=== PATIENT | female | born 2000 | race Two or more races ===

== ENCOUNTER 2020-10-15 17:39 | Inpatient (IN) ==
--- NOTE | 2020-10-15 17:56 | Emergency Department Note ---
Impression & Plan Suicidal ideation, Mood disorder ED Provider Note NAME: HEIDI MCGRAW AGE: 20 SEX: F : 2000 ARRIVES VIA: [employer] INFORMANT: Patient ED PROVIDER(S): Jonathan Barajas DO CHIEF COMPLAINT: Suicidal ideations HPI: Patient is a 20-year-old female who presents ER for suicidal ideations with active plan to suffocate herself. She notes she has had suicidal ideations for several years now. She admits that the cons are now outweighing the pros. She was talking to some of her friends in [facility]. She was telling them that she wants to and what ever happens will happen. Denies any auditory or visual hallucinations. admits to intermittent headaches which is unchanged for her as well as some intermittent chest pain which is nonexertional. Has no pain now. Patient denies diabetes, hypertension, hyperlipidemia, CAD, and history of sudden at a young age. Patient denies any recent trips, travel, coughing up blood, history of blood clots, history of clotting disorders, history of cancer. ROS: See above HPI for pertinent positives & negatives. A total of 10 systems reviewed and were otherwise negative. PAST MEDICAL HISTORY:See Below PAST SURGICAL HISTORY:See Below FAMILY HISTORY:See Below SOCIAL HISTORY:See Below HOME MEDICATIONS:See Below ALLERGIES:See Below VITALS:See Below PHYSICAL EXAMINATION: GENERAL: Sitting up in bed, alert, well appearing, well nourished, no distress, non-toxic EYE EXAM: normal conjunctiva. OROPHARYNX: no exudate, no erythema, lips, buccal mucosa, and tongue normal and mucous membranes are moist NECK: supple, no nuchal rigidity, no adenopathy, non-tender LUNGS: Clear to auscultation. Normal chest wall mechanics HEART: no murmurs, S1 normal and S2 normal ABDOMEN: abdomen soft, non-tender, normo-active bowel sounds, no masses, no rebound or guarding. UPPER EXTREMITIES: upper extremities are grossly normal. LOWER EXTREMITIES: No pitting edema. Calves are equal bilateral NEURO EXAM: Normal sensorium, cranial nerves II-XII grossly intact, normal speech, no gross weakness of arms, no gross weakness of legs. PSYCH: Admits to suicidal ideations with a plan MEDICAL DECISION MAKING: Patient is a 20-year-old female who presents the ER brought in by police with an active plan to kill herself by suffocation. She has no other complaints at this time with exception of some intermittent headaches and intermittent chest pain which is nonexertional. Labs show no significant leukocytosis or anemia. BMP with mild hypokalemia 3.4. Troponin was negative. LFTs bilirubin was unremarkable. TSH was normal. Tox was negative. Alcohol was negative. Covid was negative. Chest x-ray was unremarkable. She has no cardiac history. EKG and chest x-ray unremarkable. No chest pain today. She was updated and evaluated by 3 S. admitted on a 201. Observation Status: Indication: Mood disorder Patient with no pertinent family history, was seen first at 1750 hrs and was necessary in order to determine medical stability and avoid unnecessary admission. Upon reevaluation, 3.5 hours of observation revealed that the patient should be admitted to a psychiatric unit. Disposition date and time 2119 on 10/15/2020. Triage Nursing notes reviewed. Limited review of prior medical records performed Vital Signs: reviewed and remarkable for no significant abnormalities Differential diagnosis: Mood disorder, infection, hypoglycemia, electrolyte abnormalities, cardiac sources, intracerebral event, toxicologic, trauma, neurologic, as well as other pathologies. ER treatment provided: See below Diagnostics interpreted by me: ECG: Sinus rhythm rate of 65 Normal axis No PVCs QTC 420 T wave inversion in the septal leads Laboratory studies: As stated above and show below. Imaging studies: Portable AP upright 1 view the chest shows no focal infiltrate or pneumothorax Consultation(s): none Procedures: none Critical Care: None Past Med/Surg History Social History Smoking Status: Never smoker Feels Safe at Home: Yes Allergies Allergies Allergy/AdvReac Type Severity Reaction Status Date / Time No Known Allergies Allergy Unverified 10/15/20 18:02 Home Meds Home Medications Medication Instructions Recorded Confirmed No Known Home Medications 10/15/20 10/15/20 Results & Data (ED) Vital Signs Vital Signs - 24 hr 10/15/20 17:51 10/15/20 20:14 Pulse Rate 69 Pulse Rate [Finger] 63 Pulse Rhythm [Finger] Regular Respiratory Rate 18 16 Respiratory Effort / Characteristics Non-Labored Spontaneous Non-Labored Spontaneous Respiratory Depth Normal Normal Respiratory Pattern Regular Blood Pressure 122/82 Blood Pressure [Left Arm] 118/79 Blood Pressure Mean 95 Blood Pressure Mean [Left Arm] 92 Blood Pressure Position Sitting Blood Pressure Position [Left Arm] Sitting Pulse Oximetry 96 99 Oxygen Delivery Method Room Air Room Air Sepsis Recent Fever Within 48 Hours No Sepsis New/Unexplained Change in Mental Status N/A Sepsis Action Taken by Nursing No Action Required Laboratory Data Result diagrams: 10/15/20 17:59 10/15/20 17:59 Lab Results 10/15/20 10/15/20 10/15/20 Range/Units 17:57 17:57 17:57 WBC (4.8-10.8) K/uL RBC (4.2-5.4) M/uL Hgb (12.0-16.0) g/dL Hct (37-47) % MCV (80-100) fL MCH (25-34) pg MCHC (32-36) g/dL RDW Std Deviation (36.4-46.3) fL RDW Coeff of Rosalina (11.5-14.5) % Plt Count (130-400) K/uL MPV (7.4-10.4) fL Immature Gran % (Auto) % Neut % (Auto) % Lymph % (Auto) % Sanders % (Auto) % Eos % (Auto) % Baso % (Auto) % Neut # (Auto) (1.4-6.5) K/uL Lymph # (Auto) (1.2-3.4) K/uL Sanders # (Auto) (0.11-0.59) K/uL Eos # (Auto) (0-0.5) K/uL Baso # (Auto) (0-0.2) K/uL Immature Gran # (Auto) (0.00-0.02) K/uL Sodium (136-145) mmol/L Potassium (3.5-5.1) mmol/L Chloride (98-107) mmol/L Carbon Dioxide (21-32) mmol/L Anion Gap (3-11) BUN (7-18) mg/dl Creatinine (0.6-1.2) mg/dl Est Cr Clr Drug Dosing ml/min Est GFR ( Amer) Est GFR (Non-Af Amer) BUN/Creatinine Ratio (10-20) Glucose (70-99) mg/dl Calcium (8.5-10.1) mg/dl Total Bilirubin (0.2-1) mg/dl AST (15-37) U/L ALT (12-78) U/L Alkaline Phosphatase (45-117) U/L Troponin I (0-0.045) ng/ml Total Protein (6.4-8.2) gm/dl Albumin (3.4-5.0) gm/dl Globulin (2.5-4.0) gm/dl Albumin/Globulin Ratio (0.9-2) TSH (0.300-4.500) uIu/ml Urine Color Yellow Urine Appearance Clear (Clear) Urine pH 6.0 (4.5-7.5) Ur Specific [place] 1.024 (1.000-1.030) Urine Protein Negative (Negative) Urine Glucose (UA) Negative (Negative) Urine Ketones 1+ H (Negative) Urine Blood Negative (Negative) Urine Nitrite Negative (Negative) Urine Bilirubin Negative (Negative) Urine Urobilinogen Negative (Negative) Ur Leukocyte Esterase Negative (Negative) POC Ur Test NEG (NEG) Salicylates (2.8-20) mg/dl Urine Opiates Screen Neg (Neg) Ur Methadone, Qual Neg (Neg) Acetaminophen (10-30) ug/ml Urine Barbiturates Neg (Neg) Ur Phencyclidine (PCP) Neg (Neg) U Amphetamin/Meth Scrn Neg (Neg) MDMA (Ecstasy) Screen Neg (Neg) U Benzodiazepines Scrn Neg (Neg) Ur Cocaine Metabolite Neg (Neg) U Marijuana (THC) Screen Neg (Neg) Ethyl Alcohol mg/dL (0-3) mg/dl COVID-19 Eval Order SARS-CoV-2 (PCR) (Negative) Influenza Type A (PCR) (Neg) Influenza Type B (PCR) (Neg) RSV (RT-PCR) (Neg) 10/15/20 10/15/20 10/15/20 Range/Units 17:59 17:59 17:59 WBC 5.80 (4.8-10.8) K/uL RBC 4.91 (4.2-5.4) M/uL Hgb 15.4 (12.0-16.0) g/dL Hct 43.4 (37-47) % MCV 88.4 (80-100) fL MCH 31.4 (25-34) pg MCHC 35.5 (32-36) g/dL RDW Std Deviation 39.8 (36.4-46.3) fL RDW Coeff of Rosalina 12.4 (11.5-14.5) % Plt Count 383 (130-400) K/uL MPV 8.9 (7.4-10.4) fL Immature Gran % (Auto) 0.2 % Neut % (Auto) 54.7 % Lymph % (Auto) 35.9 % Sanders % (Auto) 6.7 % Eos % (Auto) 2.2 % Baso % (Auto) 0.3 % Neut # (Auto) 3.17 (1.4-6.5) K/uL Lymph # (Auto) 2.08 (1.2-3.4) K/uL Sanders # (Auto) 0.39 (0.11-0.59) K/uL Eos # (Auto) 0.13 (0-0.5) K/uL Baso # (Auto) 0.02 (0-0.2) K/uL Immature Gran # (Auto) 0.01 (0.00-0.02) K/uL Sodium 139 (136-145) mmol/L Potassium 3.4 L (3.5-5.1) mmol/L Chloride 106 (98-107) mmol/L Carbon Dioxide 25 (21-32) mmol/L Anion Gap 8.0 (3-11) BUN 8 (7-18) mg/dl Creatinine 0.66 (0.6-1.2) mg/dl Est Cr Clr Drug Dosing 112.5 ml/min Est GFR ( Amer) 147.4 Est GFR (Non-Af Amer) 127.2 BUN/Creatinine Ratio 11.4 (10-20) Glucose 80 (70-99) mg/dl Calcium 9.4 (8.5-10.1) mg/dl Total Bilirubin 0.7 (0.2-1) mg/dl AST 20 (15-37) U/L ALT 28 (12-78) U/L Alkaline Phosphatase 67 (45-117) U/L Troponin I < 0.015 (0-0.045) ng/ml Total Protein 10.0 H (6.4-8.2) gm/dl Albumin 4.9 (3.4-5.0) gm/dl Globulin 5.1 H (2.5-4.0) gm/dl Albumin/Globulin Ratio 1.0 (0.9-2) TSH 1.570 (0.300-4.500) uIu/ml Urine Color Urine Appearance (Clear) Urine pH (4.5-7.5) Ur Specific [place] (1.000-1.030) Urine Protein (Negative) Urine Glucose (UA) (Negative) Urine Ketones (Negative) Urine Blood (Negative) Urine Nitrite (Negative) Urine Bilirubin (Negative) Urine Urobilinogen (Negative) Ur Leukocyte Esterase (Negative) POC Ur Test (NEG) Salicylates < 1.7 L (2.8-20) mg/dl Urine Opiates Screen (Neg) Ur Methadone, Qual (Neg) Acetaminophen < 2 L (10-30) ug/ml Urine Barbiturates (Neg) Ur Phencyclidine (PCP) (Neg) U Amphetamin/Meth Scrn (Neg) MDMA (Ecstasy) Screen (Neg) U Benzodiazepines Scrn (Neg) Ur Cocaine Metabolite (Neg) U Marijuana (THC) Screen (Neg) Ethyl Alcohol mg/dL (0-3) mg/dl COVID-19 Eval Order SARS-CoV-2 (PCR) (Negative) Influenza Type A (PCR) (Neg) Influenza Type B (PCR) (Neg) RSV (RT-PCR) (Neg) 10/15/20 10/15/20 10/15/20 Range/Units 17:59 18:13 18:13 WBC (4.8-10.8) K/uL RBC (4.2-5.4) M/uL Hgb (12.0-16.0) g/dL Hct (37-47) % MCV (80-100) fL MCH (25-34) pg MCHC (32-36) g/dL RDW Std Deviation (36.4-46.3) fL RDW Coeff of Rosalina (11.5-14.5) % Plt Count (130-400) K/uL MPV (7.4-10.4) fL Immature Gran % (Auto) % Neut % (Auto) % Lymph % (Auto) % Sanders % (Auto) % Eos % (Auto) % Baso % (Auto) % Neut # (Auto) (1.4-6.5) K/uL Lymph # (Auto) (1.2-3.4) K/uL Sanders # (Auto) (0.11-0.59) K/uL Eos # (Auto) (0-0.5) K/uL Baso # (Auto) (0-0.2) K/uL Immature Gran # (Auto) (0.00-0.02) K/uL Sodium (136-145) mmol/L Potassium (3.5-5.1) mmol/L Chloride (98-107) mmol/L Carbon Dioxide (21-32) mmol/L Anion Gap (3-11) BUN (7-18) mg/dl Creatinine (0.6-1.2) mg/dl Est Cr Clr Drug Dosing ml/min Est GFR ( Amer) Est GFR (Non-Af Amer) BUN/Creatinine Ratio (10-20) Glucose (70-99) mg/dl Calcium (8.5-10.1) mg/dl Total Bilirubin (0.2-1) mg/dl AST (15-37) U/L ALT (12-78) U/L Alkaline Phosphatase (45-117) U/L Troponin I (0-0.045) ng/ml Total Protein (6.4-8.2) gm/dl Albumin (3.4-5.0) gm/dl Globulin (2.5-4.0) gm/dl Albumin/Globulin Ratio (0.9-2) TSH (0.300-4.500) uIu/ml Urine Color Urine Appearance (Clear) Urine pH (4.5-7.5) Ur Specific [place] (1.000-1.030) Urine Protein (Negative) Urine Glucose (UA) (Negative) Urine Ketones (Negative) Urine Blood (Negative) Urine Nitrite (Negative) Urine Bilirubin (Negative) Urine Urobilinogen (Negative) Ur Leukocyte Esterase (Negative) POC Ur Test (NEG) Salicylates (2.8-20) mg/dl Urine Opiates Screen (Neg) Ur Methadone, Qual (Neg) Acetaminophen (10-30) ug/ml Urine Barbiturates (Neg) Ur Phencyclidine (PCP) (Neg) U Amphetamin/Meth Scrn (Neg) MDMA (Ecstasy) Screen (Neg) U Benzodiazepines Scrn (Neg) Ur Cocaine Metabolite (Neg) U Marijuana (THC) Screen (Neg) Ethyl Alcohol mg/dL < 3.0 (0-3) mg/dl COVID-19 Eval Order CovFluRsv at [facility] SARS-CoV-2 (PCR) NEGATIVE (Negative) Influenza Type A (PCR) Negative (Neg) Influenza Type B (PCR) Negative (Neg) RSV (RT-PCR) Negative (Neg) Imaging Data Radiologist's Impression: Chest X-Ray 10/15/20 17:51 XR chest 1V portable HISTORY: 20 years-old Female cp acute atypical chest pain COMPARISON: None TECHNIQUE: Semierect AP view of the chest FINDINGS: Cardiomediastinal and hilar silhouettes are within normal limits. There is no pneumothorax, pleural effusion, airspace consolidation or overt pulmonary edema. Bones of the chest appear normal. Imaged upper abdomen is unremarkable. IMPRESSION: No acute process. ACT 112: Negative or not required by law. The above report was generated using voice recognition software. It may contain grammatical, syntax or spelling errors. Electronically signed by: Christoph Jospeh M.D. 10/15/2020 6:18 PM Discharge Plan Visit Data Chief Complaint: Mental Health Evaluation Stated Complaint: [facility] ED Provider: Jonathan Barajas Discharge Problem: Suicidal ideation, Mood disorder Forms Stand Alone Forms: [facility], Suicide Prevention Resources Prescriptions Prescriptions: No Action No Known Home Medications RF: 0
[2020-10-15 18:19] LABS: Basophils # (auto) 0.02 K/uL (0-0.2); Basophils % (auto) 0.3 %; Eosinophils # (auto) 0.13 K/uL (0-0.5); Eosinophils % (auto) 2.2 %; Hematocrit (blood only) 43.4 % (37-47); Hemoglobin 15.4 g/dL (12.0-16.0); Immature Granulocytes # (auto) 0.01 K/uL (0.00-0.02); Immature Granulocytes % (auto) 0.2 %; Lymphocytes # (auto) 2.08 K/uL (1.2-3.4); Lymphocytes % (auto) 35.9 %; Mean Corpuscular Hemoglobin 31.4 pg (25-34); Mean Corpuscular Hgb Conc 35.5 g/dL (32-36); Mean Corpuscular Volume 88.4 fL (80-100); Mean Platelet Volume 8.9 fL (7.4-10.4); Monocytes # (auto) 0.39 K/uL (0.11-0.59); Monocytes % (auto) 6.7 %; Neutrophils # (auto) 3.17 K/uL (1.4-6.5); Neutrophils % (auto) 54.7 %; Platelet Count 383 K/uL (130-400); RDW Coefficient of Variation 12.4 % (11.5-14.5); RDW Standard Deviation 39.8 fL (36.4-46.3); Red Blood Count 4.91 M/uL (4.2-5.4)
--- NOTE | 2020-10-15 18:20 | XRay Report ---
XR chest 1V portable HISTORY: 20 years-old Female cp acute atypical chest pain COMPARISON: None TECHNIQUE: Semierect AP view of the chest FINDINGS: Cardiomediastinal and hilar silhouettes are within normal limits. There is no pneumothorax, pleural e ffusion, airspace consolidation or overt pulmonary edema. Bones of the chest appear normal. Imaged up per abdomen is unremarkable. IMPRESSION: No acute process. ACT 112: Negative or not required by law. The above report was generated using voice recognition software. It may contain grammatical, syntax o r spelling errors. Electronically signed by: Christoph Joseph M.D. 10/15/2020 6:18 PM
[2020-10-15 18:21] LABS: Appearance Urine Clear (Clear); Bilirubin Urine Negative (Negative); Blood Urine Negative (Negative); Color Urine Yellow; Glucose Urine UA Negative (Negative); Ketones Urine 1+ (Negative); Leukocyte Esterase Urine Negative (Negative); Nitrite Urine Negative (Negative); Protein Urine Negative (Negative); Specific Gravity Urine 1.024 (1.000-1.030); Urobilinogen Urine Negative (Negative)
[2020-10-15 18:45] LABS: Alanine Aminotransferase 28 U/L (12-78); Albumin Level 4.9 gm/dl (3.4-5.0); Aspartate Aminotransferase 20 U/L (15-37); BUN Creatinine Ratio 11.4 (10-20); Blood Urea Nitrogen 8 mg/dl (7-18); Calcium 9.4 mg/dl (8.5-10.1); Carbon Dioxide 25 mmol/L (21-32); Chloride 106 mmol/L (98-107); Creatinine Clr Calc Pharmacy 112.5 ml/min; Est GFR (African American) 147.4; Est GFR (Non-African American) 127.2; Glucose 80 mg/dl (70-99); Potassium 3.4 mmol/L (3.5-5.1); Sodium 139 mmol/L (136-145)
[2020-10-15 18:53] LABS: Acetaminophen < 2 ug/ml (10-30); Salicylate < 1.7 mg/dl (2.8-20)
[2020-10-15 18:55] LABS: Alkaline Phosphatase 67 U/L (45-117); Bilirubin,Total 0.7 mg/dl (0.2-1); Globulin 5.1 gm/dl (2.5-4.0); Troponin I < 0.015 ng/ml (0-0.045)
[2020-10-15 19:07] LABS: Amphetamines+Metham, Urine Neg (Neg); Barbiturates, Urine Neg (Neg); Benzodiazepine, Urine Neg (Neg); Cocaine, Urine Neg (Neg); MDMA (Ecstacy), Urine Neg (Neg); Methadone, Urine Neg (Neg); Opiate, Urine Neg (Neg); Phencyclidine, Urine Neg (Neg)
[2020-10-15 19:54] LABS: Influenza A virus by PCR Negative (Neg); Influenza B virus by PCR Negative (Neg); RSV by PCR Negative (Neg); SARS CoV2 RNA(COVID-19) InHosp NEGATIVE (Negative)
[2020-10-15] MEDS ORDERED: ALUMINUM/MAGNESIUM SUSP 30 ML UDC PO PRN (21:19)
[2020-10-15] MEDS ORDERED: MAGNESIUM HYDROXIDE SUSP 30 ML UDC PO PRN (21:19)
[2020-10-15] MEDS ORDERED: ACETAMINOPHEN 325 MG TAB PO PRN (21:19)
[2020-10-15] MEDS ORDERED: hydrOXYzine HCl 25 MG TAB PO PRN ×2 (21:19)
[2020-10-15] MEDS ORDERED: SODIUM CHLORIDE 0.65% NA SOLN 45 ML (OCEAN) PRN (21:19)
[2020-10-15] MEDS ORDERED: BISMUTH SUBSALICYLATE LIQD 236 ML PO PRN (21:19)
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
--- NOTE | 2020-10-16 12:28 | Electrocardiogram Report ---
Test Reason : Blood Pressure : / mmHG Vent. Rate : 065 BPM Atrial Rate : 065 BPM P-R Int : 138 ms QRS Dur : 090 ms QT Int : 404 ms P-R-T Axes : 049 077 051 degrees QTc Int : 420 ms Normal sinus rhythm Normal ECG No previous ECGs available Confirmed by Adalberto Chowdhury ([id number]) on 10/16/2020 12:28:06 PM Referred By: REFERRED SELF Confirmed By:Adalberto Chowdhury
--- NOTE | 2020-10-17 10:23 | Psychiatric Progress Note ---
Date of Service October 17, 2020 Impression / Recommendations Impression Doreen is a very pleasant 20-year-old female with a history of multiple significant traumas at age 13, brief therapy and medication management a couple of years ago, with worsening mood, hopelessness, and suicidal thoughts in the context of school and interpersonal stressors, specifically being contacted by the daughter of a man who her mother is having an affair with. There is significant trauma within the family system, compounded by academic struggles. She is not interested in medication, and would like to have a short hospitalization as she is worried about missing additional classes and further damaging her grades. (1) Suicidal ideation: 10/16 - Continue voluntary hospitalization, every 15 minute checks for safety. Encourage group attendance and participation, work on healthy coping skills and discharge safety plan. At this point she feels able to contract for safety for at least the next month, and she has promised her ex-boyfriend she will be returning to [facility] in October. Family meeting as indicated. SI is chronic, consistent with BPD/trauma history. 10/17 - Denies current SI and admits she is starting to find herself concerned about future events which she perceives as improvement - More future oriented, though continues to report mood is numb (2) Borderline personality disorder: 10/16 - Reviewed with patient, has some traits (chronically numb mood, chronic SI), significant trauma history. Depression NOS is also on the differential. Would be beneficial to continue to explore this in therapy. Patient notes supportive therapy has not been especially helpful for her in the past, but is willing to try another therapist and will explore options for telehealth, as she will be traveling and in different countries over the summer. (3) Generalized anxiety disorder: 10/16 -discussed the possibility of another antidepressant trial, one of the SSRIs as she has not tried them. She is not willing for medications at this time, but willing to reconsider if symptoms are not improving with therapy alone. 10/17 - As above, continue to assist with development of healthy and effective coping strategies - CAPS to offer bridge therapy appointments until patient returns to [facility] this summer Risk Factors Assessment Male: No : No Do You Have Access To A Gun?: No Health Problems: No Mental Health Diagnoses: Yes Substance Use Disorders: No Family History of Suicide: No Previous Psychiatric Hospitalization: No Hopelessness: Yes Smoker: No Protective Factors Assessment Temple Beliefs: Yes : No Responsible for Young Children: No Employed: No Good Rapport with Provider: No Interval History Identifying Information HEIDI MCGRAW is a 20-year-old F [employer]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 Chief Complaint "Um, I feel good." Review of Systems Notes Constitutional: reports an episode of "sleep paralysis" last night Cardiovascular: denied Respiratory: denied Gastrointestinal: denied Neurological: denied Psychiatric: denies symptoms other than stated above Total of at least 10 systems reviewed, pertinent positives as above and in HPI. Sleep Information Total Hours of Sleep: 5 Sleep Comments: pt awoke x1 due to eating a meal and prayer. pt on q-15 minute checks Meal Information Percent Meal Consumed - Breakfast: 0 Percent Meal Consumed - Lunch: 0 Percent Meal Consumed - Dinner: 100 Nutrition Comment: pt. is fasting Subjective Subjective Patient was seen & assessed and interval progress reviewed with treatment team. Staff report the patient has been participating in group programming, though still a bit reserved. Continues to have existential thinking. Pt rated her mood a 7/10 and "unsure" last evening. Pt continues to be assisted by staff in her practices of Ramadan - adjusting meals accordingly and assistance with prayer routine schedule. Pt was seen today to assess progress since admission. She reports her mood as "good", but admits to an episode of "sleep paralysis" last evening, which she states occurs from time to time but with no known contributing factors. Pt states that her mood during community meeting this morning was "numb", but she shares she rated her mood a 7/10 as "most people would probably say numb would be a 5, the average, right? I guess for me, since numb is better than where I was, I rated it higher." Pt states that she is a bit surprised about some recent anxiety, admitting "I keep asking everyone when I can leave, because I'm stressed about finals. Which is weird...because when I was suicidal I didn't care about school at all. But now I'm finding myself missing school. I love my major, I love my minors." Pt was updated on anticipated length of stay and desire for her to continue to engage in group and 1:1 sessions to process events leading to her detailed suicide plan. Pt admits it is a challenge for her to open up about her emotions, or connect with "strangers". Pt does state that she is open to trying, however. She denied acute SI today, as well as other current concerns. Physical Exam Psychiatric Orientation: alert, oriented x 3 and cooperative Apperance: appropriately dressed, appropriately groomed and appeared stated age Eye Contact: good eye contact Motor Behavior: steady gait and station and no abnormal motor movements Speech: normal rate/rhythm/volume of speech Affect: + blunted affect Mood: + depressed mood (but admitting to some improvement) Thought Process: goal directed thought process and clear/coherent thought process Thought Content: + cognitive distortions (existential thinking) and + hopelessness (in general, but improving gradually) Suicidal Thoughts: denies suicidal thoughts and denies suicidal intent Homicidal Thoughts: denies homicidal thoughts Hallucinations: no auditory hallucinations and no visual hallucinations Cognition: attention grossly intact and language grossly intact Estimated Intelligence: consistent with education level Insight: + fair insight Judgement: + fair judgement Vital Signs (Past 24 Hours) Last Vital Signs Temp 36.7 C 10/17/20 06:48 Pulse 66 10/17/20 06:49 Resp 16 10/17/20 06:48 BP 101/69 10/17/20 06:49 Pulse Ox 100 10/16/20 17:22 Results & Data ([facility]) Current Inpatient Medications Current Inpatient Medications: Current Inpatient Medications Acetaminophen (Acetaminophen 325 Mg Tab) 650 mg PO Q4H PRN PRN Reason: Headache or Minor Fever Stop: 11/14/20 21:18 Al Hydrox/Mg Hydrox/Simethicone (Aluminum/Magnesium Susp 30 Ml Udc) 30 ml PO Q4H PRN PRN Reason: GI Upset Stop: 11/14/20 21:18 Bismuth Subsalicylate (Bismuth Subsalicylate Liqd 236 Ml) 15 ml PO PRN PRN PRN Reason: Loose Stool Stop: 11/14/20 21:18 Hydroxyzine HCl (Hydroxyzine Hcl 25 Mg Tab) 50 mg PO HSZ PRN PRN Reason: Insomnia Stop: 11/14/20 21:18 Hydroxyzine HCl (Hydroxyzine Hcl 25 Mg Tab) 25 mg PO Q4H PRN PRN Reason: Anxiety Stop: 11/14/20 21:18 Magnesium Hydroxide (Magnesium Hydroxide Susp 30 Ml Udc) 30 ml PO DAILY PRN PRN Reason: Constipation Stop: 11/14/20 21:18 Sodium Chloride (Sodium Chloride 0.65% Na Soln 45 Ml ([place])) 1 - 2 sprays NA PRN PRN PRN Reason: Nasal Dryness/Congestion Stop: 11/14/20 21:18 Mental Health & Subst Abuse Tx Therapist Name of Therapist: Telemed Professional Services Consultant Name of Professional Services Consultant: Denies Post Discharge Appointments Primary Care Physician Name Of Family Doctor: [facility] Contact Information Discharge Discharge Address: [address] [place] [address],[place] [id number]
--- NOTE | 2020-10-18 12:43 | Psychiatric Progress Note ---
Date of Service October 18, 2020 Impression / Recommendations Impression Doreen is a very pleasant 20-year-old female with a history of multiple significant traumas at age 13, brief therapy and medication management a couple of years ago, with worsening mood, hopelessness, and suicidal thoughts in the context of school and interpersonal stressors, specifically being contacted by the daughter of a man who her mother is having an affair with. There is significant trauma within the family system, compounded by academic struggles. She is not interested in medication, and would like to have a short hospitalization as she is worried about missing additional classes and further damaging her grades. (1) Suicidal ideation: 10/16 - Continue voluntary hospitalization, every 15 minute checks for safety. Encourage group attendance and participation, work on healthy coping skills and discharge safety plan. At this point she feels able to contract for safety for at least the next month, and she has promised her ex-boyfriend she will be returning to [facility] in October. Family meeting as indicated. SI is chronic, consistent with BPD/trauma history. 10/17 - Denies current SI and admits she is starting to find herself concerned about future events which she perceives as improvement - More future oriented, though continues to report mood is numb 10/18 - Denies SI, continues to report "numb" mood - Schedule support meeting - Assist with completion of written safety plan (2) Borderline personality disorder: 10/16 - Reviewed with patient, has some traits (chronically numb mood, chronic SI), significant trauma history. Depression NOS is also on the differential. Would be beneficial to continue to explore this in therapy. Patient notes supportive therapy has not been especially helpful for her in the past, but is willing to try another therapist and will explore options for telehealth, as she will be traveling and in different countries over the summer. 10/18 - Continue as above (3) Generalized anxiety disorder: 10/16 -discussed the possibility of another antidepressant trial, one of the SSRIs as she has not tried them. She is not willing for medications at this time, but willing to reconsider if symptoms are not improving with therapy alone. 10/17 - As above, continue to assist with development of healthy and effective coping strategies - CAPS to offer bridge therapy appointments until patient returns to [facility] this summer - Continue as above Risk Factors Assessment Male: No : No Do You Have Access To A Gun?: No Health Problems: No Mental Health Diagnoses: Yes Substance Use Disorders: No Family History of Suicide: No Previous Psychiatric Hospitalization: No Hopelessness: Yes Smoker: No Protective Factors Assessment Advent Beliefs: Yes : No Responsible for Young Children: No Employed: No Good Rapport with Provider: No Interval History Identifying Information HEIDI MCGRAW is a 20-year-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 Chief Complaint "I'm good. I've been outside my room a little more, now that I have a roommate." Review of Systems Notes Constitutional: denied Cardiovascular: denied Respiratory: denied Gastrointestinal: denied Neurological: denied Psychiatric: denies symptoms other than stated above Total of at least 10 systems reviewed, pertinent positives as above and in HPI. Sleep Information Total Hours of Sleep: 6 Sleep Comments: Awake from approximately 0400 to 0530 to eat meal and say prayers for Ramdan Meal Information Percent Meal Consumed - Breakfast: 0 Percent Meal Consumed - Lunch: 0 Percent Meal Consumed - Dinner: 75 Nutrition Comment: pt. is fastingl; had a meal at 0400 before sunrise Subjective Subjective Patient was seen & assessed and interval progress reviewed with nursing and social work. Staff report the patient has been participating in group programming. She continues to be able to participate in Ramadan fasting and rituals with staff's assistance. Pt was seen today to assess progress since admission. Pt states "I'm good. I've been outside my room a little more, now that I have a roommate." Pt states that she is feeling she is able to open up a bit more with selective staff and peers. Pt states her mood continues to be "numb" but "it's whatever." Pt denied acute SI, but continues to endorse intermittent hopelessness. Pt admits that her mood generally fluctuates between depressed and numb. Pt states that she is open to a support meeting with friends from [facility]. She denied other needs or concerns today. Physical Exam Psychiatric Orientation: alert, oriented x 3 and cooperative Apperance: appropriately dressed and appropriately groomed Eye Contact: good eye contact Motor Behavior: steady gait and station and no abnormal motor movements Speech: normal rate/rhythm/volume of speech Affect: + blunted affect Mood: + depressed mood (but describes mood as "numb") Thought Process: goal directed thought process and clear/coherent thought process Thought Content: reality based without delusions and + hopelessness Suicidal Thoughts: denies suicidal thoughts Homicidal Thoughts: denies homicidal thoughts Hallucinations: no auditory hallucinations and no visual hallucinations Cognition: attention grossly intact and language grossly intact Estimated Intelligence: consistent with education level Insight: + fair insight Judgement: + fair judgement Vital Signs (Past 24 Hours) Last Vital Signs Temp 36.5 C 10/18/20 06:48 Pulse 65 10/18/20 06:48 Resp 16 10/18/20 06:48 BP 98/63 L 10/18/20 06:48 Pulse Ox 100 10/16/20 17:22 Results & Data ([facility]) Current Inpatient Medications Current Inpatient Medications: Current Inpatient Medications Acetaminophen (Acetaminophen 325 Mg Tab) 650 mg PO Q4H PRN PRN Reason: Headache or Minor Fever Stop: 11/14/20 21:18 Al Hydrox/Mg Hydrox/Simethicone (Aluminum/Magnesium Susp 30 Ml Udc) 30 ml PO Q4H PRN PRN Reason: GI Upset Stop: 11/14/20 21:18 Bismuth Subsalicylate (Bismuth Subsalicylate Liqd 236 Ml) 15 ml PO PRN PRN PRN Reason: Loose Stool Stop: 11/14/20 21:18 Hydroxyzine HCl (Hydroxyzine Hcl 25 Mg Tab) 50 mg PO HSZ PRN PRN Reason: Insomnia Stop: 11/14/20 21:18 Hydroxyzine HCl (Hydroxyzine Hcl 25 Mg Tab) 25 mg PO Q4H PRN PRN Reason: Anxiety Stop: 11/14/20 21:18 Magnesium Hydroxide (Magnesium Hydroxide Susp 30 Ml Udc) 30 ml PO DAILY PRN PRN Reason: Constipation Stop: 11/14/20 21:18 Sodium Chloride (Sodium Chloride 0.65% Na Soln 45 Ml ([place])) 1 - 2 sprays NA PRN PRN PRN Reason: Nasal Dryness/Congestion Stop: 11/14/20 21:18 Mental Health & Subst Abuse Tx Therapist Name of Therapist: LIBRA Fisher Therapist's Date of Therapist Appointment: 10/23/20 Time of Therapist Appointment: 3:00 p.m. Therapy Appointment Comment: Telehealth (will receive a text w/ intake forms to complete prior to appt) Heating Technician Name of Heating Technician: Alessandro Vicente Phone Number for Heating Technician: [phone] Date of Appointment with Heating Technician: 10/23/20 Time of Appointment with Heating Technician: 11:00 a.m. Case Management Appointment Comment: Will follow up with you via telephone Post Discharge Appointments Primary Care Physician Name Of Family Doctor: [facility] Primary Care Provider Appointment Comment: Follow up as needed Contact Information Discharge Discharge Address: [address] [place] [address],[place] [id number]
--- NOTE | 2020-10-19 16:48 | Psychiatric Progress Note ---
Date of Service October 19, 2020 Impression / Recommendations Impression Doreen is a very pleasant 20-year-old female with a history of multiple significant traumas at age 13, brief therapy and medication management a couple of years ago, with worsening mood, hopelessness, and suicidal thoughts in the context of school and interpersonal stressors, specifically being contacted by the daughter of a man who her mother is having an affair with. There is significant trauma within the family system, compounded by academic struggles. She is not interested in medication, and would like to have a short hospitalization as she is worried about missing additional classes and further damaging her grades. (1) Suicidal ideation: 10/16 - Continue voluntary hospitalization, every 15 minute checks for safety. Encourage group attendance and participation, work on healthy coping skills and discharge safety plan. At this point she feels able to contract for safety for at least the next month, and she has promised her ex-boyfriend she will be returning to [facility] in October. Family meeting as indicated. SI is chronic, consistent with BPD/trauma history. 10/17 - Denies current SI and admits she is starting to find herself concerned about future events which she perceives as improvement - More future oriented, though continues to report mood is numb 10/18 - Denies SI, continues to report "numb" mood - Schedule support meeting - Assist with completion of written safety plan 10/19 - Admits to "unwanted" SI today during phone call with day - Describes herself as a "soul-less body" and that "life is just procrastinating " - but denies acute SI, plan, or intent. (2) Borderline personality disorder: 10/16 - Reviewed with patient, has some traits (chronically numb mood, chronic SI), significant trauma history. Depression NOS is also on the differential. Would be beneficial to continue to explore this in therapy. Patient notes supportive therapy has not been especially helpful for her in the past, but is willing to try another therapist and will explore options for telehealth, as she will be traveling and in different countries over the summer. 10/18 - Continue as above 10/19 - Pt no longer feeling "numb" and is now concerned and uncomfortable with the emotions she is experiencing. - Continue to offer support while encouraging patient to process and work through her emotions in a healthy and productive manner (3) Generalized anxiety disorder: 10/16 -discussed the possibility of another antidepressant trial, one of the SSRIs as she has not tried them. She is not willing for medications at this time, but willing to reconsider if symptoms are not improving with therapy alone. 10/17 - As above, continue to assist with development of healthy and effective coping strategies - CAPS to offer bridge therapy appointments until patient returns to [facility] this summer - Continue as above 10/19 - Significantly increased anxiety today - partly in anticipation of family meeting tomorrow. - Discussed potential to use hydroxyzine for anxiety, though with specific warning against using the medications to completely blunt emotions Risk Factors Assessment Male: No : No Do You Have Access To A Gun?: No Health Problems: No Mental Health Diagnoses: Yes Substance Use Disorders: No Family History of Suicide: No Previous Psychiatric Hospitalization: No Hopelessness: Yes Smoker: No Protective Factors Assessment Spiritism Beliefs: Yes : No Responsible for Young Children: No Employed: No Good Rapport with Provider: No Interval History Identifying Information HEIDI MCGRAW is a 20-year-old F [employer]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 Chief Complaint "Um, I'm really worried about the family meeting. My dad will be in it." Review of Systems Notes Constitutional: reports restlessness Cardiovascular: denied Respiratory: denied Gastrointestinal: denied Neurological: denied Psychiatric: denies symptoms other than stated above Total of at least 10 systems reviewed, pertinent positives as above and in HPI. Sleep Information Total Hours of Sleep: 5.5 Sleep Comments: Patient awake once at 0400 (see nurse's note) Meal Information Percent Meal Consumed - Breakfast: 0 Percent Meal Consumed - Lunch: 0 Percent Meal Consumed - Dinner: 80 Nutrition Comment: pt. is fasting Subjective Subjective Patient was seen & assessed and interval progress reviewed with treatment team. Staff report the patient has been a bit more isolative. She did not fast or pray for Ramadan this morning, which has been out of her usual routine on the unit. Pt has a meeting scheduled for tomorrow with a friend, and has since decided to include her dad as well. Pt was seen today to assess progress since admission. Pt states that she is feeling more nervous about her family meeting. She admits she feels overwhelmed to be including her father, who has reportedly told her she is "making this too complicated, it is easy to make yourself feel better." She states that she experienced "unwanted" SI during her call with him today, admitting "those are the less concerning thoughts" because they are not pre-meditated and she does not spend much time thinking about them. Pt appears much more anxious today and admits, "I'm starting to feel things, and I don't like it. I'm not numb anymore." Pt admits that feeling numb was "easier", and we discussed that while this may be easier, it is not the approach that helps us grow or helps us take control of our emotions. Pt states "my dreams are becoming more vivid and real life seems more blurry." She states that there is a "barrier" between herself and others at times, and she reports having a conversation with staff last evening about the possibility of dissociations. Pt shares that another struggle is feeling "like my thoughts are too dark for the rest of the group." Specifically, she states "I shared that I feel like a soul- less body and that life is just a procrastination of . I thought everyone felt that way." We did discuss that although patient is still hesitant for daily medications, she could utilize hydroxyzine for acute anxiety not responding to other coping strategies. She was advised to avoid using the medication as a way to feel "numb" and verbalized understand of how this would be counter productive. Pt denies acute SI and this provider expressed hope that she would speak to our child welfare social worker in the morning about any concerns related to her family meeting, rather than canceling it because of anxiety. Pt denied other needs at this time. Physical Exam Psychiatric Orientation: alert, oriented x 3 and cooperative Apperance: appropriately dressed, appropriately groomed and appeared stated age Eye Contact: + poor eye contact Motor Behavior: + psychomotor agitation (significant restlessness/anxiety, bouncing legs, fidgeting with hair ) Speech: normal rate/rhythm/volume of speech Affect: + anxious affect (extremely anxious affect) Mood: + anxious mood admits "I'm feeling things, and I don't like it" Thought Process: goal directed thought process Thought Content: + hopelessness Suicidal Thoughts: denies suicidal thoughts and denies suicidal intent denies SI presently, but admits to recurrence of "unwanted" SI during phone conversation with her father Homicidal Thoughts: denies homicidal thoughts Hallucinations: no auditory hallucinations and no visual hallucinations Cognition: attention grossly intact and language grossly intact Estimated Intelligence: consistent with education level Insight: + fair insight Judgement: + fair judgement Vital Signs (Past 24 Hours) Last Vital Signs Temp 36.6 C 10/19/20 06:49 Pulse 56 L 10/19/20 06:50 Resp 16 10/19/20 06:49 BP 96/60 L 10/19/20 06:50 Pulse Ox 100 10/16/20 17:22 Results & Data ([facility]) Current Inpatient Medications Current Inpatient Medications: Current Inpatient Medications Acetaminophen (Acetaminophen 325 Mg Tab) 650 mg PO Q4H PRN PRN Reason: Headache or Minor Fever Stop: 11/14/20 21:18 Al Hydrox/Mg Hydrox/Simethicone (Aluminum/Magnesium Susp 30 Ml Udc) 30 ml PO Q4H PRN PRN Reason: GI Upset Stop: 11/14/20 21:18 Bismuth Subsalicylate (Bismuth Subsalicylate Liqd 236 Ml) 15 ml PO PRN PRN PRN Reason: Loose Stool Stop: 11/14/20 21:18 Hydroxyzine HCl (Hydroxyzine Hcl 25 Mg Tab) 50 mg PO HSZ PRN PRN Reason: Insomnia Stop: 11/14/20 21:18 Hydroxyzine HCl (Hydroxyzine Hcl 25 Mg Tab) 25 mg PO Q4H PRN PRN Reason: Anxiety Stop: 11/14/20 21:18 Magnesium Hydroxide (Magnesium Hydroxide Susp 30 Ml Udc) 30 ml PO DAILY PRN PRN Reason: Constipation Stop: 11/14/20 21:18 Sodium Chloride (Sodium Chloride 0.65% Na Soln 45 Ml ([place])) 1 - 2 sprays NA PRN PRN PRN Reason: Nasal Dryness/Congestion Stop: 11/14/20 21:18 Mental Health & Subst Abuse Tx Therapist Name of Therapist: LIBRA Fisher Therapist's Date of Therapist Appointment: 10/23/20 Time of Therapist Appointment: 3:00 p.m. Therapy Appointment Comment: Telehealth (will receive a text w/ intake forms to complete prior to appt) Hand Packer Name of Hand Packer: [facility] Phone Number for Hand Packer: [phone] Date of Appointment with Hand Packer: 10/23/20 Time of Appointment with Hand Packer: 11:00 a.m. Case Management Appointment Comment: Will follow up with you via telephone Post Discharge Appointments Primary Care Physician Name Of Family Doctor: LEDY Primary Care Provider Appointment Comment: Follow up as needed Contact Information Discharge Discharge Address: [address] [place] [address],[place] [id number]
--- NOTE | 2020-10-20 15:49 | Psychiatric Progress Note ---
Date of Service October 20, 2020 note 45+ min spent in care of this patient in chart review, meeting with sw, 1-on-1 review with patient introducing DBT concepts and psychoeducation around dx. Impression / Recommendations Impression Doreen is a very pleasant 20-year-old female with a history of multiple significant traumas at age 13, brief therapy and medication management a couple of years ago, with worsening mood, hopelessness, and suicidal thoughts in the context of school and interpersonal stressors, specifically being contacted by the daughter of a man who her mother is having an affair with. There is significant trauma within the family system, compounded by academic struggles. She is not interested in medication, and would like to have a short hospitalization as she is worried about missing additional classes and further damaging her grades. Reviewed 10/20/20. (1) Suicidal ideation: 10/16 - Continue voluntary hospitalization, every 15 minute checks for safety. Encourage group attendance and participation, work on healthy coping skills and discharge safety plan. At this point she feels able to contract for safety for at least the next month, and she has promised her ex-boyfriend she will be returning to [facility] in October. Family meeting as indicated. SI is chronic, consistent with BPD/trauma history. 10/17 - Denies current SI and admits she is starting to find herself concerned about future events which she perceives as improvement - More future oriented, though continues to report mood is numb 10/18 - Denies SI, continues to report "numb" mood - Schedule support meeting - Assist with completion of written safety plan 10/19 - Admits to "unwanted" SI today during phone call with day - Describes herself as a "soul-less body" and that "life is just procrastinating " - but denies acute SI, plan, or intent. Reviewed 10/20/20. still can not safety plan for discharge. (2) Borderline personality disorder: 10/16 - Reviewed with patient, has some traits (chronically numb mood, chronic SI), significant trauma history. Depression NOS is also on the differential. Would be beneficial to continue to explore this in therapy. Patient notes supportive therapy has not been especially helpful for her in the past, but is willing to try another therapist and will explore options for telehealth, as she will be traveling and in different countries over the summer. 10/18 - Continue as above 10/19 - Pt no longer feeling "numb" and is now concerned and uncomfortable with the emotions she is experiencing. - Continue to offer support while encouraging patient to process and work through her emotions in a healthy and productive manner Reviewed 10/20/20. Vistaril prn when unable to redirect thoughts to SIB (pull hair, scratch arms). Still encouraging SSRI but not clear who would prescribe after stay for interim period and then in home country. (3) Generalized anxiety disorder: 10/16 -discussed the possibility of another antidepressant trial, one of the SSRIs as she has not tried them. She is not willing for medications at this time, but willing to reconsider if symptoms are not improving with therapy alone. 10/17 - As above, continue to assist with development of healthy and effective coping strategies - CAPS to offer bridge therapy appointments until patient returns to [facility] this summer - Continue as above 10/19 - Significantly increased anxiety today - partly in anticipation of family meeting tomorrow. - Discussed potential to use hydroxyzine for anxiety, though with specific warning against using the medications to completely blunt emotions Reviewed 10/20/20. 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 Reviewed 10/20/20. Chief Complaint "I guess I thought everyone had all of those dark thoughts but I still want to rest". Review of Systems Sleep Information Total Hours of Sleep: 8 Sleep Comments: Patient awake once at 0400 (see nurse's note) Meal Information Percent Meal Consumed - Breakfast: 95 Percent Meal Consumed - Lunch: 95 Percent Meal Consumed - Dinner: 100 Nutrition Comment: pt. is fasting Subjective Subjective Patient was seen & assessed and interval progress reviewed with nursing and social work. Patient seen following family meeting. She states that only reason she is still alive is that she promised a friend in [facility] that she would return home to go to a [employer] (same friend who alerted suicide prevention hotline to her SI). The patient states she in coming here she was "pulled back from the bridge" but that "I'm still closer to the edge". She struggled to complete safety plan as still views life in general as worthless and doesn't understand why friends just won't "let me go". She fantasizes about having a calm passing where there is no shame but that "shame is not a reason to live". Discussed impact of ramadan on her fasting and willingness to accept medications. She states that she prefers to be numb and dissociative rather than experience anxiety but when did experience anxiety last pm she accepted medication and it was helpful. "I was still upset but I didn't want to pull my hair out." Physical Exam Psychiatric Orientation: alert, oriented x 3 and cooperative Apperance: appropriately dressed, appropriately groomed and appeared stated age Eye Contact: good eye contact and + fair eye contact Motor Behavior: + psychomotor agitation (significant restlessness/anxiety, bouncing legs, fidgeting with hair ) Speech: normal rate/rhythm/volume of speech Affect: + anxious affect (extremely anxious affect) Mood: + depressed mood (but describes mood as "numb") Thought Process: clear/coherent thought process Thought Content: + cognitive distortions (existential thinking), reality based without delusions, + hopelessness, + worthlessness and + guilt Suicidal Thoughts: denies suicidal intent; + reports suicidal thoughts (still wishes she was and that she will jump someday) Homicidal Thoughts: denies homicidal thoughts Hallucinations: no auditory hallucinations and no visual hallucinations Cognition: recent memory grossly intact, remote memory grossly intact, attention grossly intact and language grossly intact Estimated Intelligence: consistent with education level Insight: not fair insight Judgement: not fair judgement Vital Signs (Past 24 Hours) Last Vital Signs Temp 36.4 C L 10/20/20 06:00 Pulse 65 10/20/20 06:43 Resp 16 10/20/20 06:00 BP 103/68 10/20/20 06:43 Pulse Ox 100 10/16/20 17:22 Results & Data ([facility]) Current Inpatient Medications Current Inpatient Medications: Current Inpatient Medications Acetaminophen (Acetaminophen 325 Mg Tab) 650 mg PO Q4H PRN PRN Reason: Headache or Minor Fever Stop: 11/14/20 21:18 Al Hydrox/Mg Hydrox/Simethicone (Aluminum/Magnesium Susp 30 Ml Udc) 30 ml PO Q 4H PRN PRN Reason: GI Upset Stop: 11/14/20 21:18 Bismuth Subsalicylate (Bismuth Subsalicylate Liqd 236 Ml) 15 ml PO PRN PRN PRN Reason: Loose Stool Stop: 11/14/20 21:18 Hydroxyzine HCl (Hydroxyzine Hcl 25 Mg Tab) 50 mg PO HSZ PRN PRN Reason: Insomnia Stop: 11/14/20 21:18 Hydroxyzine HCl (Hydroxyzine Hcl 25 Mg Tab) 25 mg PO Q4H PRN PRN Reason: Anxiety Stop: 11/14/20 21:18 Last Admin: 10/19/20 17:03 Dose: 25 mg Documented by: Magnesium Hydroxide (Magnesium Hydroxide Susp 30 Ml Udc) 30 ml PO DAILY PRN PRN Reason: Constipation Stop: 11/14/20 21:18 Sodium Chloride (Sodium Chloride 0.65% Na Soln 45 Ml ([place])) 1 - 2 sprays NA PRN PRN PRN Reason: Nasal Dryness/Congestion Stop: 11/14/20 21:18 Mental Health & Subst Abuse Tx Therapist Name of Therapist: LIBRA Fisher Therapist's Date of Therapist Appointment: 10/23/20 Time of Therapist Appointment: 3:00 p.m. Therapy Appointment Comment: Telehealth (will receive a text w/ intake forms to complete prior to appt) Pattern Drafter Name of Pattern Drafter: [facility] Phone Number for Pattern Drafter: [phone] Date of Appointment with Pattern Drafter: 10/23/20 Time of Appointment with Pattern Drafter: 11:00 a.m. Case Management Appointment Comment: Will follow up with you via telephone Post Discharge Appointments Primary Care Physician Name Of Family Doctor: [facility] Primary Care Provider Appointment Comment: Follow up as needed Contact Information Discharge Discharge Address: [address] [place] [address]
[2020-10-21] MEDS ORDERED: BENZTROPINE MESYLATE 0.5 MG TAB PO PRN (13:34)
[2020-10-21] MEDS ORDERED: BENZTROPINE MESYLATE 1 MG/ML 2 ML AMP IM STA (13:34)
[2020-10-21] MEDS ORDERED: ARIPIprazole 1 MG/ML ORAL SOLN 150 ML BTL PO ONE (14:15)
--- NOTE | 2020-10-21 14:43 | Psychiatric Progress Note ---
Date of Service October 21, 2020 Impression / Recommendations Impression Doreen is a very pleasant 20-year-old female with a history of multiple significant traumas at age 13, brief therapy and medication management a couple of years ago, with worsening mood, hopelessness, and suicidal thoughts in the context of school and interpersonal stressors, specifically being contacted by the daughter of a man who her mother is having an affair with. There is significant trauma within the family system, compounded by academic struggles. She is not interested in medication, and would like to have a short hospitalization as she is worried about missing additional classes and further damaging her grades. Reviewed 10/20/20. 10/21/20--now she realizes she cannot contract for safety outside of the hospital and is willing to consider retroactive medical withdrawal and medication. (1) Suicidal ideation: 10/16 - Continue voluntary hospitalization, every 15 minute checks for safety. Encourage group attendance and participation, work on healthy coping skills and discharge safety plan. At this point she feels able to contract for safety for at least the next month, and she has promised her ex-boyfriend she will be returning to [facility] in October. Family meeting as indicated. SI is chronic, consistent with BPD/trauma history. 10/17 - Denies current SI and admits she is starting to find herself concerned about future events which she perceives as improvement - More future oriented, though continues to report mood is numb 10/18 - Denies SI, continues to report "numb" mood - Schedule support meeting - Assist with completion of written safety plan 10/19 - Admits to "unwanted" SI today during phone call with day - Describes herself as a "soul-less body" and that "life is just procrastinating " - but denies acute SI, plan, or intent. Reviewed 10/20/20. still can not safety plan for discharge. (2) Borderline personality disorder: 10/16 - Reviewed with patient, has some traits (chronically numb mood, chronic SI), significant trauma history. Depression NOS is also on the differential. Would be beneficial to continue to explore this in therapy. Patient notes supportive therapy has not been especially helpful for her in the past, but is willing to try another therapist and will explore options for telehealth, as she will be traveling and in different countries over the summer. 10/18 - Continue as above 10/19 - Pt no longer feeling "numb" and is now concerned and uncomfortable with the emotions she is experiencing. - Continue to offer support while encouraging patient to process and work through her emotions in a healthy and productive manner Reviewed 10/20/20. Vistaril prn when unable to redirect thoughts to SIB (pull hair, scratch arms). Still encouraging SSRI but not clear who would prescribe after stay for interim period and then in home country. 10/21/20--Risks/benefits/alternatives were reviewed re: antipsychotics for mood stabilization/severe depression/PTSD. Discussion included but was not limited to metabolic side effects, risks of TD and suicidal thoughts. There were no abnormal motor movements at baseline. Fasting glucose and lipid panel ordered for baseline monitoring. She agreed to 1 mg Abilify today with 2 mg starting tomorrow. (3) Generalized anxiety disorder: 10/16 -discussed the possibility of another antidepressant trial, one of the SSRIs as she has not tried them. She is not willing for medications at this time, but willing to reconsider if symptoms are not improving with therapy alone. 10/17 - As above, continue to assist with development of healthy and effective coping strategies - CAPS to offer bridge therapy appointments until patient returns to [facility] this summer - Continue as above 10/19 - Significantly increased anxiety today - partly in anticipation of family meeting tomorrow. - Discussed potential to use hydroxyzine for anxiety, though with specific warning against using the medications to completely blunt emotions Reviewed 10/20/20. 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 Reviewed 10/20/20. Chief Complaint "I guess I think others don't think what I'm experiencing is real". Review of Systems Sleep Information Total Hours of Sleep: 8 Meal Information Percent Meal Consumed - Breakfast: 50 Percent Meal Consumed - Lunch: 50 Percent Meal Consumed - Dinner: 50 Nutrition Comment: did not like the meal Subjective Subjective Patient was seen & assessed and interval progress reviewed with nursing and social work. Today relates that although still not sure when she will "rest", ie end her life it's more important to her that her thoughts be at rest. That she not let small things like the tone of someone's voice ruin her day. She feels culturally that it will be unacceptable for her to get therapy in [place] and her concerns will be minimized. She is tired of feeling "like I want to pull my hair out all the time" meaning restless and is willing to consider medication options beyond prn Vistaril for the first time. She reports vivid nightmares over night with "sleep screaming" which was not heard by staff which she reports as sleep paralysis. She is being "taken" by a demonic figure and tries to scream in the dream but can't. Physical Exam Psychiatric Orientation: alert, oriented x 3 and cooperative Apperance: appropriately dressed, appropriately groomed and appeared stated age Eye Contact: good eye contact, + fair eye contact and + poor eye contact Motor Behavior: steady gait and station and no abnormal motor movements Speech: normal rate/rhythm/volume of speech Affect: + anxious affect (extremely anxious affect) and + blunted affect Mood: + depressed mood Thought Process: goal directed thought process Thought Content: + cognitive distortions (existential thinking), reality based without delusions, + hopelessness and + guilt Suicidal Thoughts: denies suicidal intent; + reports suicidal thoughts (still wishes she was and that she will jump someday) Homicidal Thoughts: denies homicidal thoughts Hallucinations: no auditory hallucinations and no visual hallucinations Cognition: recent memory grossly intact, remote memory grossly intact, attention grossly intact and language grossly intact Estimated Intelligence: consistent with education level Insight: not fair insight Judgement: not fair judgement Vital Signs (Past 24 Hours) Last Vital Signs Temp 36.6 C 10/21/20 06:00 Pulse 63 10/21/20 06:19 Resp 16 10/21/20 06:00 BP 103/74 10/21/20 06:19 Pulse Ox 100 10/16/20 17:22 Results & Data ([facility]) Current Inpatient Medications Current Inpatient Medications: Current Inpatient Medications Acetaminophen (Acetaminophen 325 Mg Tab) 650 mg PO Q4H PRN PRN Reason: Headache or Minor Fever Stop: 11/14/20 21:18 Al Hydrox/Mg Hydrox/Simethicone (Aluminum/Magnesium Susp 30 Ml Udc) 30 ml PO Q4H PRN PRN Reason: GI Upset Stop: 11/14/20 21:18 Aripiprazole (Aripiprazole 1 Mg/Ml Oral Soln 150 Ml Btl) 2 mg PO QAM ARSALAN Stop: 11/21/20 08:59 Benztropine Mesylate (Benztropine Mesylate 0.5 Mg Tab) 0.5 mg PO Q6 PRN PRN Reason: Muscle Spasm Stop: 11/20/20 13:33 Bismuth Subsalicylate (Bismuth Subsalicylate Liqd 236 Ml) 15 ml PO PRN PRN PRN Reason: Loose Stool Stop: 11/14/20 21:18 Hydroxyzine HCl (Hydroxyzine Hcl 25 Mg Tab) 50 mg PO HSZ PRN PRN Reason: Insomnia Stop: 11/14/20 21:18 Hydroxyzine HCl (Hydroxyzine Hcl 25 Mg Tab) 25 mg PO Q4H PRN PRN Reason: Anxiety Stop: 11/14/20 21:18 Last Admin: 10/19/20 17:03 Dose: 25 mg Documented by: Magnesium Hydroxide (Magnesium Hydroxide Susp 30 Ml Udc) 30 ml PO DAILY PRN PRN Reason: Constipation Stop: 11/14/20 21:18 Sodium Chloride (Sodium Chloride 0.65% Na Soln 45 Ml ([place])) 1 - 2 sprays NA PRN PRN PRN Reason: Nasal Dryness/Congestion Stop: 11/14/20 21:18 Mental Health & Subst Abuse Tx Therapist Name of Therapist: LIBRA Fisher Therapist's Date of Therapist Appointment: 10/23/20 Time of Therapist Appointment: 3:00 p.m. Therapy Appointment Comment: Telehealth (will receive a text w/ intake forms to complete prior to appt) [employer] Name of [employer]person [employer]: Alessandro De Jesus and Kenyatta Vicente Phone Number for Salesperson [employer]: [phone] Date of Appointment with Salesperson [employer]: 10/23/20 Time of Appointment with Salesperson [employer]: 11:00 a.m. Case Management Appointment Comment: Will follow up with you via telephone Post Discharge Appointments Primary Care Physician Name Of Family Doctor: [facility] Primary Care Provider Appointment Comment: Follow up as needed Contact Information Discharge Discharge Address: [address] [place] [address],[place] [address]
[2020-10-22 08:19] LABS: Glucose Fasting 89 mg/dl (70-99)
[2020-10-22 08:26] LABS: Chol HDL Ratio 3; Cholesterol 144 mg/dl (0-200); HDL Cholesterol 53 mg/dl; LDL Cholesterol Calculated 75 mg/dl; Triglycerides 80 mg/dl (0-150); VLDL Cholesterol 16 mg/dl
[2020-10-22] MEDS ORDERED: ARIPIprazole 1 MG/ML ORAL SOLN 150 ML BTL PO SCH (09:00)
--- NOTE | 2020-10-22 12:26 | Psychiatric Progress Note ---
Date of Service October 22, 2020 Impression / Recommendations Impression Doreen is a very pleasant 20-year-old female with a history of multiple significant traumas at age 13, brief therapy and medication management a couple of years ago, with worsening mood, hopelessness, and suicidal thoughts in the context of school and interpersonal stressors, specifically being contacted by the daughter of a man who her mother is having an affair with. There is significant trauma within the family system, compounded by academic struggles. She is not interested in medication, and would like to have a short hospitalization as she is worried about missing additional classes and further damaging her grades. Reviewed 10/20/20. Started Abilify 10/21/20. 10/22/20--acutely suicidal, unable to contract for safety off unit, tolerating Abilify. (1) Suicidal ideation: 10/16 - Continue voluntary hospitalization, every 15 minute checks for safety. Encourage group attendance and participation, work on healthy coping skills and discharge safety plan. At this point she feels able to contract for safety for at least the next month, and she has promised her ex-boyfriend she will be returning to [facility] in October. Family meeting as indicated. SI is chronic, consistent with BPD/trauma history. 10/17 - Denies current SI and admits she is starting to find herself concerned about future events which she perceives as improvement - More future oriented, though continues to report mood is numb 10/18 - Denies SI, continues to report "numb" mood - Schedule support meeting - Assist with completion of written safety plan 10/19 - Admits to "unwanted" SI today during phone call with day - Describes herself as a "soul-less body" and that "life is just procrastinating " - but denies acute SI, plan, or intent. Reviewed 10/20/20. 10/22/20--still can not safety plan for discharge. (2) Borderline personality disorder: 10/16 - Reviewed with patient, has some traits (chronically numb mood, chronic SI), significant trauma history. Depression NOS is also on the differential. Would be beneficial to continue to explore this in therapy. Patient notes supportive therapy has not been especially helpful for her in the past, but is willing to try another therapist and will explore options for telehealth, as she will be traveling and in different countries over the summer. 10/18 - Continue as above 10/19 - Pt no longer feeling "numb" and is now concerned and uncomfortable with the emotions she is experiencing. - Continue to offer support while encouraging patient to process and work through her emotions in a healthy and productive manner Reviewed 10/20/20. Vistaril prn when unable to redirect thoughts to SIB (pull hair, scratch arms). Still encouraging SSRI but not clear who would prescribe after stay for interim period and then in home country. 10/21/20--Risks/benefits/alternatives were reviewed re: antipsychotics for mood stabilization/severe depression/PTSD. Discussion included but was not limited to metabolic side effects, risks of TD and suicidal thoughts. There were no abnormal motor movements at baseline. Fasting glucose and lipid panel ordered for baseline monitoring. She agreed to 1 mg Abilify today with 2 mg starting tomorrow. 10/22/20--continue Abilify titration to 5 mg tomorrow am. (3) Generalized anxiety disorder: 10/16 -discussed the possibility of another antidepressant trial, one of the SSRIs as she has not tried them. She is not willing for medications at this time, but willing to reconsider if symptoms are not improving with therapy alone. 10/17 - As above, continue to assist with development of healthy and effective coping strategies - CAPS to offer bridge therapy appointments until patient returns to [facility] this summer - Continue as above 10/19 - Significantly increased anxiety today - partly in anticipation of family meeting tomorrow. - Discussed potential to use hydroxyzine for anxiety, though with specific warning against using the medications to completely blunt emotions Reviewed 10/20/20. 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 Reviewed 10/20/20. Chief Complaint "safety plans seem ridiculous as killing myself would make me feel safe". Review of Systems Sleep Information Total Hours of Sleep: 6 Meal Information Percent Meal Consumed - Breakfast: 90 Percent Meal Consumed - Lunch: 50 Percent Meal Consumed - Dinner: 100 Subjective Subjective Patient was seen & assessed and interval progress reviewed with treatment team. patient appears interactive with peers but 1-on-1 discounts any change in mood and states in fact feels triggered by peer's comments on "foreigners and sex". Staff have not witnessed what she is referring to and will continue to redirect, patient to make staff aware. Tolerated first dose of Abilify. No night terrors/sleep paralysis overnight but doesn't feel rested. Continues to feel that suicide is a welcome idea compared to dealing with life as meaningless and others are just deluding themselves. Denies any intent or plan to harm self on unit. Physical Exam Psychiatric Orientation: alert, oriented x 3 and cooperative Apperance: appropriately dressed, appropriately groomed and appeared stated age Eye Contact: + fair eye contact Motor Behavior: steady gait and station and + psychomotor agitation (significant restlessness/anxiety, bouncing legs, fidgeting with hair ) Speech: normal rate/rhythm/volume of speech Affect: + anxious affect (extremely anxious affect) and + blunted affect Mood: + depressed mood Thought Process: + perseveration Thought Content: + cognitive distortions (existential thinking), reality based without delusions, + hopelessness, + worthlessness and + guilt Suicidal Thoughts: denies suicidal intent; + reports suicidal thoughts (still wishes she was and that she will jump someday) Homicidal Thoughts: denies homicidal thoughts Hallucinations: no auditory hallucinations and no visual hallucinations Cognition: recent memory grossly intact, remote memory grossly intact, attention grossly intact and language grossly intact Estimated Intelligence: consistent with education level Insight: not fair insight Judgement: not fair judgement Vital Signs (Past 24 Hours) Last Vital Signs Temp 36.4 C L 10/22/20 06:00 Pulse 71 10/22/20 06:24 Resp 16 10/22/20 06:00 BP 109/68 10/22/20 06:24 Pulse Ox 100 10/16/20 17:22 Results & Data ([facility]) Laboratory Results Laboratory Results - last 24 hr 10/22/20 07:42 Fasting Glucose 89 Triglycerides 80 Cholesterol 144 LDL Cholesterol, Calc 75 VLDL Cholesterol, Calc 16 HDL Cholesterol 53 Cholesterol/HDL Ratio 3 Current Inpatient Medications Current Inpatient Medications: Current Inpatient Medications Acetaminophen (Acetaminophen 325 Mg Tab) 650 mg PO Q4H PRN PRN Reason: Headache or Minor Fever Stop: 11/14/20 21:18 Al Hydrox/Mg Hydrox/Simethicone (Aluminum/Magnesium Susp 30 Ml Udc) 30 ml PO Q4H PRN PRN Reason: GI Upset Stop: 11/14/20 21:18 Aripiprazole (Aripiprazole 1 Mg/Ml Oral Soln 150 Ml Btl) 2 mg PO QAM ARSALAN Stop: 11/21/20 08:59 Last Admin: 10/22/20 08:06 Dose: 2 mg Documented by: Benztropine Mesylate (Benztropine Mesylate 0.5 Mg Tab) 0.5 mg PO Q6 PRN PRN Reason: Muscle Spasm Stop: 11/20/20 13:33 Bismuth Subsalicylate (Bismuth Subsalicylate Liqd 236 Ml) 15 ml PO PRN PRN PRN Reason: Loose Stool Stop: 11/14/20 21:18 Hydroxyzine HCl (Hydroxyzine Hcl 25 Mg Tab) 50 mg PO HSZ PRN PRN Reason: Insomnia Stop: 11/14/20 21:18 Hydroxyzine HCl (Hydroxyzine Hcl 25 Mg Tab) 25 mg PO Q4H PRN PRN Reason: Anxiety Stop: 11/14/20 21:18 Last Admin: 10/19/20 17:03 Dose: 25 mg Documented by: Magnesium Hydroxide (Magnesium Hydroxide Susp 30 Ml Udc) 30 ml PO DAILY PRN PRN Reason: Constipation Stop: 11/14/20 21:18 Sodium Chloride (Sodium Chloride 0.65% Na Soln 45 Ml ([place])) 1 - 2 sprays NA PRN PRN PRN Reason: Nasal Dryness/Congestion Stop: 11/14/20 21:18 Mental Health & Subst Abuse Tx Psychiatrist Name of Psychiatrist: LIBRA Psychiatrist's Therapist Name of Therapist: LIBRA Fisher Therapist's Date of Therapist Appointment: 10/30/20 Time of Therapist Appointment: 3:00 p.m. Therapy Appointment Comment: Telehealth (will receive a text w/ intake forms to complete prior to appt) Front End Specialist Name of Front End Specialist: [facility] Phone Number for Front End Specialist: [phone] Date of Appointment with Front End Specialist: 10/23/20 Time of Appointment with Front End Specialist: 11:00 a.m. Case Management Appointment Comment: Will follow up with you via telephone Post Discharge Appointments Primary Care Physician Name Of Family Doctor: Rashmi Primary Care Provider Appointment Comment: Follow up as needed Contact Information Discharge Discharge Address: [address] [place] [address],[place] [address]
[2020-10-23] MEDS ORDERED: ARIPIprazole 1 MG/ML ORAL SOLN 150 ML BTL PO SCH (09:00)
--- NOTE | 2020-10-23 11:25 | Progress Note ---
Date of Service October 23, 2020 Assessment & Plan (1) Suicidal ideation: 10/16 - Continue voluntary hospitalization, every 15 minute checks for safety. Encourage group attendance and participation, work on healthy coping skills and discharge safety plan. At this point she feels able to contract for safety for at least the next month, and she has promised her ex-boyfriend she will be returning to [facility] in October. Family meeting as indicated. SI is chronic, consistent with BPD/trauma history. 10/17 - Denies current SI and admits she is starting to find herself concerned about future events which she perceives as improvement - More future oriented, though continues to report mood is numb 10/18 - Denies SI, continues to report "numb" mood - Schedule support meeting - Assist with completion of written safety plan 10/19 - Admits to "unwanted" SI today during phone call with day - Describes herself as a "soul-less body" and that "life is just procrastinating " - but denies acute SI, plan, or intent. Reviewed 10/20/20. 10/22/20--still can not safety plan for discharge. 10/23/2020atient still unable to complete safety plan at this time, but is reporting improvement in mood. (2) Borderline personality disorder: 10/16 - Reviewed with patient, has some traits (chronically numb mood, chronic SI), significant trauma history. Depression NOS is also on the differential. Would be beneficial to continue to explore this in therapy. Patient notes supportive therapy has not been especially helpful for her in the past, but is willing to try another therapist and will explore options for telehealth, as she will be traveling and in different countries over the summer. 10/18 - Continue as above 10/19 - Pt no longer feeling "numb" and is now concerned and uncomfortable with the emotions she is experiencing. - Continue to offer support while encouraging patient to process and work through her emotions in a healthy and productive manner Reviewed 10/20/20. Vistaril prn when unable to redirect thoughts to SIB (pull hair, scratch arms). Still encouraging SSRI but not clear who would prescribe after stay for interim period and then in home country. 10/21/20--Risks/benefits/alternatives were reviewed re: antipsychotics for mood stabilization/severe depression/PTSD. Discussion included but was not limited to metabolic side effects, risks of TD and suicidal thoughts. There were no abnormal motor movements at baseline. Fasting glucose and lipid panel ordered for baseline monitoring. She agreed to 1 mg Abilify today with 2 mg starting tomorrow. 10/22/20--continue Abilify titration to 5 mg tomorrow am. 10/23/2020ontinue with Abilify 5 mg p.o. every morning (3) Generalized anxiety disorder: 10/16 -discussed the possibility of another antidepressant trial, one of the SSRIs as she has not tried them. She is not willing for medications at this time, but willing to reconsider if symptoms are not improving with therapy alone. 10/17 - As above, continue to assist with development of healthy and effective coping strategies - [facility] to offer bridge therapy appointments until patient returns to [facility] this summer - Continue as above 10/19 - Significantly increased anxiety today - partly in anticipation of family meeting tomorrow. - Discussed potential to use hydroxyzine for anxiety, though with specific warning against using the medications to completely blunt emotions Reviewed 10/20/20. 1patient reports good effect of hydroxyzine medication on her anxiety. Patient was told that this medication will be made available for as needed. Admission and Anticipated Discharge Date Admission Date: October 15, 2020 Subjective Patient seen, chart reviewed, case discussed with treatment team. Patient is a 20-year-old female who presented with depressed mood and suicidal ideation. Today patient was seen in her room and was taken to the office for a brief meeting. Patient reports somewhat improvement in mood although continues to endorse suicidal thoughts and ideas. Patient acknowledges that these thoughts and ideas are longstanding in nature and have been chronic for the past several years. Despite continue to experience these thoughts, patient is reporting an improvement in mood. She states that she is now more future oriented and eager to finish up her studies and start her summer school. Despite reporting this improvement, patient has difficulty missael for safety. Patient is compliant with her medication, no side effects reported or observed. Patient spoke about worrying that medication would make her feel "numb", however patient is relieved to report not feeling numb despite medication. Physical Exam Psychiatric: Orientation: alert and oriented x 3 Apperance: appropriately dressed Eye Contact: + fair eye contact Motor Behavior: steady gait and station Speech: normal rate/rhythm/volume of speech Affect: + depressed affect, + flat affect and + constricted affect Mood: + depressed mood Thought Process: goal directed thought process Thought Content: + hopelessness Suicidal Thoughts: + reports suicidal thoughts Hallucinations: no auditory hallucinations and no visual hallucinations Estimated Intelligence: average estimated intelligence Insight: + fair insight Judgement: + fair judgement Results & Data ([facility]) Vital Signs (Past 12 Hours) Vital Signs Temp Pulse Resp BP 10/23/20 06:51 36.6 C 73 16 106/69
[2020-10-24] MEDS ORDERED: ARIPiprazole 5 MG TAB PO SCH (09:00)
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
== END 2020-10-24 11:22 | disposition home or self-care (01) | DRG 880 ==
LOC: ED 17:39 → 3S 20:39

== ENCOUNTER 2022-05-09 14:40 | Inpatient (IN) ==
--- NOTE | 2022-05-09 14:54 | Emergency Department Note ---
Impression & Plan Feeling suicidal ADMIT ED Provider Note HPI: The patient is a 21-year-old female who presents the emergency department with a chief complaint of suicidal thoughts, patient states that she has previously had suicidal thoughts. Patient states that she was at [facility] today and was mentioning these thoughts and therefore was referred to the emergency department via police for further assessment over concern for potential harm to herself. On arrival here to the ED the patient is calm and cooperative, she is in no acute distress. She does admit to recent thoughts of wanting to commit suicide but she states this is "nothing new". Patient states that she does have a bag of things at home including rope and other objects that she would potentially use to kill herself I was referred to as a "suicide kit". Patient is an international student from [place], she states that she has previously required inpatient psychiatric care for these thoughts. ROS: -Psychiatric: Suicidal thoughts *10 point review systems was conducted and is otherwise negative unless stated above *Outpatient medications and allergy history reviewed PE: General: Alert HEENT: Normocephalic, trachea midline Eyes: Extraocular eye movement is intact, no scleral erythema Pulmonary: Clear to auscultation bilaterally, no wheezing Cardio: Regular rate and rhythm GI: Abdomen is soft, nontender : No suprapubic tenderness MSK: No evidence of trauma or malformation of the extremities, no edema Skin: No evidence of rash Neuro: Alert, no focal deficits Psychiatric: Cooperative Medical Decision Making: Patient presented to the emergency department with a chief complaint of suicidal thoughts. She was seen today by [facility] and referred to the emergency room for suicidal thoughts. On arrival here to the ED the patient does admit to recent suicidal thoughts, states that she has had plans to kill herself in various ways and at times she is carried these materials with her. She is calm and cooperative on arrival, medical clearance was obtained and patient was assessed by case management, determined appropriate for 201 admission. 302 petition will be held however the patient at this time is voluntary. Patient was assessed and accepted for placement at 3 ., she was transferred in stable condition for further care. Diagnosis: 1. Suicidal thoughts 2. Anxiety/depression Disposition: Admission Raúl Lazar DO Emergency Medicine Past Med/Surg History Medical History Borderline personality disorder Generalized anxiety disorder Suicidal ideation Surgical History No pertinent past surgical history Social History Smoking Status: Never smoker Preferred Language: Angolan Communication Ability: Effective Beliefs That Will Affect Care: Buddhism and Cultural Feels Safe at Home: Yes and No Assistive Devices: None Allergies Allergies Allergy/AdvReac Type Severity Reaction Status Date / Time No Known Allergies Allergy Unverified 10/15/20 18:02 Home Meds Home Medications Medication Instructions Recorded Confirmed No Known Home Medications 10/15/20 05/09/22 Results & Data (ED) Vital Signs Vital Signs - 24 hr 05/09/22 14:40 Temperature 36.8 C Temperature Source Oral Pulse Rate 71 Respiratory Rate 16 Respiratory Effort / Characteristics Non-Labored Respiratory Depth Normal Blood Pressure 131/72 Blood Pressure Mean 91 Pulse Oximetry 97 Oxygen Delivery Method Room Air Sepsis Recent Fever Within 48 Hours No Sepsis New/Unexplained Change in Mental Status No Sepsis Action Taken by Nursing No Action Required Laboratory Data Result diagrams: 05/09/22 15:04 05/09/22 15:04 Lab Results 05/09/22 05/09/22 05/09/22 Range/Units 15:04 15:04 15:04 WBC 7.74 (4.8-10.8) K/ul RBC 4.06 (3.93-5.22) M/uL Hgb 12.6 (12.0-16.0) g/dl Hct 37.5 (34.1-44.9) % MCV 92.4 (80.0-100.0) fL MCH 31.0 (25.0-34.0) pg MCHC 33.6 (32.0-36.0) g/dL RDW Std Deviation 41.6 (36.4-46.3) fL RDW Coeff of Rosalina 12.3 (11.5-14.5) % Plt Count 333 (130-400) K/uL MPV 8.8 L (9.4-12.3) fL Immature Gran % (Auto) 0.1 % Neut % (Auto) 67.5 % Lymph % (Auto) 22.7 % Independence % (Auto) 4.9 % Eos % (Auto) 4.0 % Baso % (Auto) 0.8 % Neut # (Auto) 5.22 (1.4-6.5) K/uL Lymph # (Auto) 1.76 (1.2-3.4) K/uL Independence # (Auto) 0.38 (0.24-0.82) K/uL Eos # (Auto) 0.31 (0-0.50) K/uL Baso # (Auto) 0.06 (0-0.2) K/uL Immature Gran # (Auto) 0.01 (0.00-0.02) K/uL Sodium 137 (136-145) mmol/L Potassium 3.5 (3.5-5.1) mmol/L Chloride 107 (98-107) mmol/L Carbon Dioxide 24 (21-32) mmol/L Anion Gap 6 (3-11) BUN 8 (6-23) mg/dl Creatinine 0.61 (0.6-1.2) mg/dl Est Cr Clr Drug Dosing 130.4 ml/min Est GFR ( Amer) > 150.0 ml/min Est GFR (Non-Af Amer) 129.6 ml/min BUN/Creatinine Ratio 13.1 (10-20) Glucose 80 (70-99(Fasting)) mg/dl Calcium 8.9 (8.5-10.1) mg/dl Total Bilirubin 0.4 (0.2-1.0) mg/dl AST 20 (13-39) U/L ALT 12 (7-52) U/L Alkaline Phosphatase 37 (34-104) U/L Total Protein 7.7 (6.0-8.3) gm/dl Albumin 4.3 (3.4-5.0) gm/dl Globulin 3.4 (2.5-4.0) gm/dl Albumin/Globulin Ratio 1.3 (0.9-2) TSH 0.736 (0.300-4.500) uIu/ml Urine Color Urine Appearance (Clear) Urine pH (4.5-7.5) Ur Specific [place] (1.000-1.030) Urine Protein (Negative) Urine Glucose (UA) (Negative) Urine Ketones (Negative) Urine Blood (Negative) Urine Nitrite (Negative) Urine Bilirubin (Negative) Urine Urobilinogen (Negative) Ur Leukocyte Esterase (Negative) Salicylates (3.0-30) mg/dl Urine Opiates Screen (Neg) Ur Methadone, Qual (Neg) Acetaminophen (10-30) ug/ml Urine Barbiturates (Neg) Ur Phencyclidine (PCP) (Neg) U Amphetamin/Meth Scrn (Neg) MDMA (Ecstasy) Screen (Neg) U Benzodiazepines Scrn (Neg) Ur Cocaine Metabolite (Neg) U Marijuana (THC) Screen (Neg) Ethyl Alcohol mg/dL (<10.0) mg/dl SARS-CoV-2, RNA, NAAT (NEGATIVE) 05/09/22 05/09/22 05/09/22 Range/Units 15:04 15:04 15:04 WBC (4.8-10.8) K/ul RBC (3.93-5.22) M/uL Hgb (12.0-16.0) g/dl Hct (34.1-44.9) % MCV (80.0-100.0) fL MCH (25.0-34.0) pg MCHC (32.0-36.0) g/dL RDW Std Deviation (36.4-46.3) fL RDW Coeff of Rosalina (11.5-14.5) % Plt Count (130-400) K/uL MPV (9.4-12.3) fL Immature Gran % (Auto) % Neut % (Auto) % Lymph % (Auto) % Independence % (Auto) % Eos % (Auto) % Baso % (Auto) % Neut # (Auto) (1.4-6.5) K/uL Lymph # (Auto) (1.2-3.4) K/uL Independence # (Auto) (0.24-0.82) K/uL Eos # (Auto) (0-0.50) K/uL Baso # (Auto) (0-0.2) K/uL Immature Gran # (Auto) (0.00-0.02) K/uL Sodium (136-145) mmol/L Potassium (3.5-5.1) mmol/L Chloride (98-107) mmol/L Carbon Dioxide (21-32) mmol/L Anion Gap (3-11) BUN (6-23) mg/dl Creatinine (0.6-1.2) mg/dl Est Cr Clr Drug Dosing ml/min Est GFR ( Amer) ml/min Est GFR (Non-Af Amer) ml/min BUN/Creatinine Ratio (10-20) Glucose (70-99(Fasting)) mg/dl Calcium (8.5-10.1) mg/dl Total Bilirubin (0.2-1.0) mg/dl AST (13-39) U/L ALT (7-52) U/L Alkaline Phosphatase (34-104) U/L Total Protein (6.0-8.3) gm/dl Albumin (3.4-5.0) gm/dl Globulin (2.5-4.0) gm/dl Albumin/Globulin Ratio (0.9-2) TSH (0.300-4.500) uIu/ml Urine Color Urine Appearance (Clear) Urine pH (4.5-7.5) Ur Specific [place] (1.000-1.030) Urine Protein (Negative) Urine Glucose (UA) (Negative) Urine Ketones (Negative) Urine Blood (Negative) Urine Nitrite (Negative) Urine Bilirubin (Negative) Urine Urobilinogen (Negative) Ur Leukocyte Esterase (Negative) Salicylates < 3.0 L (3.0-30) mg/dl Urine Opiates Screen (Neg) Ur Methadone, Qual (Neg) Acetaminophen < 3 L (10-30) ug/ml Urine Barbiturates (Neg) Ur Phencyclidine (PCP) (Neg) U Amphetamin/Meth Scrn (Neg) MDMA (Ecstasy) Screen (Neg) U Benzodiazepines Scrn (Neg) Ur Cocaine Metabolite (Neg) U Marijuana (THC) Screen (Neg) Ethyl Alcohol mg/dL < 10.0 (<10.0) mg/dl SARS-CoV-2, RNA, NAAT NEGATIVE (NEGATIVE) 05/09/22 05/09/22 Range/Units 15:04 15:04 WBC (4.8-10.8) K/ul RBC (3.93-5.22) M/uL Hgb (12.0-16.0) g/dl Hct (34.1-44.9) % MCV (80.0-100.0) fL MCH (25.0-34.0) pg MCHC (32.0-36.0) g/dL RDW Std Deviation (36.4-46.3) fL RDW Coeff of Rosalina (11.5-14.5) % Plt Count (130-400) K/uL MPV (9.4-12.3) fL Immature Gran % (Auto) % Neut % (Auto) % Lymph % (Auto) % Independence % (Auto) % Eos % (Auto) % Baso % (Auto) % Neut # (Auto) (1.4-6.5) K/uL Lymph # (Auto) (1.2-3.4) K/uL [place] # (Auto) (0.24-0.82) K/uL Eos # (Auto) (0-0.50) K/uL Baso # (Auto) (0-0.2) K/uL Immature Gran # (Auto) (0.00-0.02) K/uL Sodium (136-145) mmol/L Potassium (3.5-5.1) mmol/L Chloride (98-107) mmol/L Carbon Dioxide (21-32) mmol/L Anion Gap (3-11) BUN (6-23) mg/dl Creatinine (0.6-1.2) mg/dl Est Cr Clr Drug Dosing ml/min Est GFR ( Amer) ml/min Est GFR (Non-Af Amer) ml/min BUN/Creatinine Ratio (10-20) Glucose (70-99(Fasting)) mg/dl Calcium (8.5-10.1) mg/dl Total Bilirubin (0.2-1.0) mg/dl AST (13-39) U/L ALT (7-52) U/L Alkaline Phosphatase (34-104) U/L Total Protein (6.0-8.3) gm/dl Albumin (3.4-5.0) gm/dl Globulin (2.5-4.0) gm/dl Albumin/Globulin Ratio (0.9-2) TSH (0.300-4.500) uIu/ml Urine Color Yellow Urine Appearance Clear (Clear) Urine pH 7.0 (4.5-7.5) Ur Specific [place] 1.007 (1.000-1.030) Urine Protein Negative (Negative) Urine Glucose (UA) Negative (Negative) Urine Ketones Negative (Negative) Urine Blood Negative (Negative) Urine Nitrite Negative (Negative) Urine Bilirubin Negative (Negative) Urine Urobilinogen Negative (Negative) Ur Leukocyte Esterase Negative (Negative) Salicylates (3.0-30) mg/dl Urine Opiates Screen Neg (Neg) Ur Methadone, Qual Neg (Neg) Acetaminophen (10-30) ug/ml Urine Barbiturates Neg (Neg) Ur Phencyclidine (PCP) Neg (Neg) U Amphetamin/Meth Scrn Neg (Neg) MDMA (Ecstasy) Screen Neg (Neg) U Benzodiazepines Scrn Neg (Neg) Ur Cocaine Metabolite Neg (Neg) U Marijuana (THC) Screen Neg (Neg) Ethyl Alcohol mg/dL (<10.0) mg/dl SARS-CoV-2, RNA, NAAT (NEGATIVE) Discharge Plan Visit Data Chief Complaint: Mental Health Evaluation Stated Complaint: [facility] ED Provider: Raúl Lazar Discharge Problem: Feeling suicidal Patient Disposition: Admitted As Inpatient Forms Stand Alone Forms: [facility], Suicide Prevention Resources Prescriptions Prescriptions: No Action No Known Home Medications Referrals [facility]: [facility] [Primary Care Provider] -
[2022-05-09 15:35] LABS: Basophils # (auto) 0.06 K/uL (0-0.2); Basophils % (auto) 0.8 %; Eosinophils # (auto) 0.31 K/uL (0-0.50); Hematocrit (blood only) 37.5 % (34.1-44.9); Hemoglobin 12.6 g/dl (12.0-16.0); Immature Granulocytes # (auto) 0.01 K/uL (0.00-0.02); Immature Granulocytes % (auto) 0.1 %; Lymphocytes # (auto) 1.76 K/uL (1.2-3.4); Lymphocytes % (auto) 22.7 %; Mean Corpuscular Hgb Conc 33.6 g/dL (32.0-36.0); Mean Corpuscular Volume 92.4 fL (80.0-100.0); Mean Platelet Volume 8.8 fL (9.4-12.3); Monocytes # (auto) 0.38 K/uL (0.24-0.82); Monocytes % (auto) 4.9 %; Neutrophils # (auto) 5.22 K/uL (1.4-6.5); Neutrophils % (auto) 67.5 %; Platelet Count 333 K/uL (130-400); RDW Coefficient of Variation 12.3 % (11.5-14.5); RDW Standard Deviation 41.6 fL (36.4-46.3); Red Blood Count 4.06 M/uL (3.93-5.22); White Blood Count 7.74 K/ul (4.8-10.8)
[2022-05-09 15:37] LABS: Appearance Urine Clear (Clear); Bilirubin Urine Negative (Negative); Blood Urine Negative (Negative); Color Urine Yellow; Glucose Urine UA Negative (Negative); Ketones Urine Negative (Negative); Leukocyte Esterase Urine Negative (Negative); Nitrite Urine Negative (Negative); Protein Urine Negative (Negative); Specific Gravity Urine 1.007 (1.000-1.030); Urobilinogen Urine Negative (Negative)
[2022-05-09 15:58] LABS: Acetaminophen < 3 ug/ml (10-30); Salicylate < 3.0 mg/dl (3.0-30)
[2022-05-09 15:59] LABS: Alanine Aminotransferase 12 U/L (7-52); Albumin Globulin Ratio 1.3 (0.9-2); Albumin Level 4.3 gm/dl (3.4-5.0); Alkaline Phosphatase 37 U/L (34-104); Anion Gap 6 (3-11); Aspartate Aminotransferase 20 U/L (13-39); BUN Creatinine Ratio 13.1 (10-20); Bilirubin,Total 0.4 mg/dl (0.2-1.0); Blood Urea Nitrogen 8 mg/dl (6-23); Calcium 8.9 mg/dl (8.5-10.1); Carbon Dioxide 24 mmol/L (21-32); Chloride 107 mmol/L (98-107); Creatinine Clr Calc Pharmacy 130.4 ml/min; Est GFR (African American) > 150.0 ml/min; Est GFR (Non-African American) 129.6 ml/min; Globulin 3.4 gm/dl (2.5-4.0); Glucose 80 mg/dl (70-99(Fasting)); Potassium 3.5 mmol/L (3.5-5.1); Sodium 137 mmol/L (136-145); Total Protein 7.7 gm/dl (6.0-8.3)
[2022-05-09 16:35] LABS: Amphetamines+Metham, Urine Neg (Neg); Barbiturates, Urine Neg (Neg); Benzodiazepine, Urine Neg (Neg); Cocaine, Urine Neg (Neg); MDMA (Ecstacy), Urine Neg (Neg); Methadone, Urine Neg (Neg); Opiate, Urine Neg (Neg); Phencyclidine, Urine Neg (Neg)
[2022-05-09] MEDS ORDERED: MAGNESIUM HYDROXIDE SUSP 30 ML UDC PO PRN (17:42)
[2022-05-09] MEDS ORDERED: ALUMINUM/MAGNESIUM SUSP 30 ML UDC PO PRN (17:42)
[2022-05-09] MEDS ORDERED: hydrOXYzine HCl 25 MG TAB PO PRN ×2 (17:42)
[2022-05-09] MEDS ORDERED: SODIUM CHLORIDE 0.65% NA SOLN 45 ML (OCEAN) PRN (17:42)
[2022-05-09] MEDS ORDERED: ACETAMINOPHEN 325 MG TAB PO PRN (17:42)
[2022-05-09] MEDS ORDERED: BISMUTH SUBSALICYLATE LIQD 236 ML PO PRN (17:42)
--- NOTE | 2022-05-10 10:22 | History & Physical ---
Date of Service May 10, 2022 Impression / Recommendations Impression The patient is a 21 year old [employer] student with a history of borderline personality disorder and complex trauma who was admitted for SI with suicide kit. Diagnostically consistent with borderline personality disorder and some worsening derealization from trauma. Her acute risk seems slightly elevated beyond her chronically high baseline risk so will focus on modifiable risk factors with goal of brief hospitalization as prolonged inpatient treatment is likely to reinforce maladaptive coping skills and lead to worsening of acute and chronic risk, can lead to worsening of the patient's prognosis especially as she identifies some reduction in her suicidality in recent months as no longer having active SI with plan nor intent but rather what she identifies as passive intermittent SI. Discussed medication treatment options in detail. Discussed risks, benefits and alternatives. Patient would like to start and consented to sertraline for depression, anxiety and PTSD/trauma symptoms. Reviewed side effects including but not limited to: GI, GUERRERO, sexual side effects, and counseled on black box warning of potential for emergence of or increased SI and need to let staff know should this occur or should they feel unsafe. Also discussed importance of seeking emergency care following discharge if this side effect occurs in the future. (1) Borderline personality disorder: (2) Post traumatic stress disorder (PTSD): (3) Generalized anxiety disorder: (4) Suicidal ideations: Plan 05/10/22: The patient was admitted to the [facility]) on q15 min checks (behavioral with suicide precautions) for safety. The patient will participate in group, recreational, and milieu therapies and will be offered additional individual and family sessions as clinically appropriate. -Start sertraline 25mg qd -Radha BPD questionnaire Inventory Assets Strengths: supportive relationships, starting outpatient therapy, willing to consider DBT, resilient Needs: safety and stabilization, medication adjustment, additional coping skills, increased outpatient services Suicide Risk Level Suicide Risk Level: High-Moderate (q15 min suicide checks) (due to BPD with chronic intermittent SI prior to admission but feels safe in the hospital, able to safety contract and agrees to let nursing/staff know should they develop plan, intent or feel unable to remain safe.) Suicide Risk Level Comments: Risk Factors Assessment Male: No : No Do You Have Access To A Gun?: No Health Problems: No Mental Health Diagnoses: Yes Substance Use Disorders: No Previous Attempt: No Family History of Suicide: No Previous Psychiatric Hospitalization: Yes Protective Factors Assessment Employed: No Stable Relationships: Yes Supportive Family: Yes Psychiatric History Identifying Data HEIDI MCGRAW is a 21-year-old woman and international [employer] student from [place] who currently lives in [place] with 5 roommates, has a history of BPD, trauma, depression, and was admitted on 05/09/22 17:42 on a 201 voluntary commitment for SI and unable to safety plan in outpatient setting due to having access to a "suicide kit". Chief Complaint "I feel like I'm fine, I'm just numb". History of Present Illness Doreen presents for psychiatric admission for chronic SI and unable to safety plan in outpatient setting due to keeping a "suicide kit" to use if needed. 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 [facility] is working to request accommodations for a reduced academic schedule but if this is not successful she'll transition to a visitors Visa and could stay here but then couldn't do her classes and would need to restart next semester. While speaking to [facility] she discussed her chronic SI and having access to a suicide kit which lead them to refer her to the hospital. She describes reading about recent "case studies" of people having suicide kits with meat tenderizer substances that could be mixed with water and drink to . She explains she had been looking into this but would not want to use it as it causes hemorrhaging and bruising and would be scary. She has a rope but states "in theory it would work" but that in her house "the measurements wouldn't work because I would find something to latch on to to save myself" and that "our bodies flight or fight is amazing". Speaks to the confusion of both wanting to but also planning ahead to graduate school and necessary steps for acquiring a new Visa. She notes "now that I'm not actively suicidal I'm just floating and if I can't kill myself what do I do with my life?". She identifies some worsening of anxiety due to increased difficulty with her classes and needing to drop classes. She endorses chronic passive SI but states "I no longer have that feeling of actively planning new plans". She notes she has a suicide kit but it doesn't have pills in it currently. She describes "I'm dysfunctional and numb if it wasn't for my dog I wouldn't be able to get up in the morning". 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 Describes "I feel comfortable being depressed, it's the feeling I'm most comfortable and familiar with". She feels the past few months her SI has decreased in that she is no longer having active SI and has moved to passive SI but she feels this is bothering her because "it's not there and that's what I'm used to". Identifies reasons for living as her dog. Endorses some feelings of dissociation (though states this has decreased a lot in recent years), still feels some derealization. Further recent history reviewed and confirmed as documented by ED psych CM note from 05/09/22: "Sigifredo Watts) was sent to ED by [facility] for evaluation. Doreen was seen by [facility] and reported ongoing "constant' thoughts of suicide for the past eight years. She stated she has a "suicide kit" that she keeps with rope a nd "chemicals" to OD on. She reported depressed mood, low motivation, irritability and family stressors. She stated she has racing thoughts, feelings of worthlessness, and trouble concentrating. She reported stressors as academic and having to drop two classes already this semester. 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 She stated she feels "numb." Doreen was hospitalized for inpatient mental health treatment at [facility] from 10/15/2020 to 10/24/2020. She had a recent intake at [facility] and is on their waiting list. She is not prescribed any medications. She denies substance use. She reports occasional alcohol use, socially approx 2 days a week. She denies any legal issues. Doreen is agreeable with recommendation made by [facility] for inpatient mental health treatment." She is not currently prescribed any psychiatric medications. Psychiatric ROS notable for history of self-harm via cutting, hx of eating disorder. No current nor history of symptoms of ana nor psychosis. Past Psychiatric History Current Psychiatric Diagnosis: BPD Outpatient Services: recent intake at [facility] with new therapist Kim Jackson (two sessions so far) Previous Psych Admissions: [facility] late September to early October 2020 Do You Have Access To A Gun?: No History of Previous Suicide Attempt: No Past Medication Trials: hx abilify 5mg daily during admission October 2020 (took this for about 2 months but didn't find it helpful and caused chest tightness and SOB so she stopped it) and Vistaril 25mg prn for anxiety (found this helpful). hx escitalopram (was expensive) Effexor XR (worsened sleep paralysis) Past Head Trauma/Neuro History History of Concussion/Seizure: No Allergies Allergy/AdvReac Type Severity Reaction Status Date / Time No Known Allergies Allergy Verified 05/10/22 09:54 Home Medications Medication Instructions Recorded Confirmed Type No Known Home Medications 10/15/20 05/09/22 History Family History Family History of: Depression (mother) and Doesn't Know Alcohol History Hx of Alcohol Use Over the Past 12 Months: Yes (1 day a week - social) AUDIT Total Score: 2 Smoking Use Have You Smoked or Used Tobacco Products in the Last 30 Days: Yes tobacco type: cigarettes Smoking Status: Current some day smoker Smoking packs per day: 0 Substance History Hx of Prescription Med Misuse Over the Past 12 Months: No Hx of Over the Counter Med Misuse Over the Past 12 Months: No Hx of Inhalent Misuse Over the Past 12 Months: No Hx of Organic Substance Use Over the Past 12 Months: No Hx of Illegal Substances/Street Drug Use Over Past 12 Months: No Problems as a Result of Past Substance Use: None Identified Personal History Living Arrangements: Apartment Childhood: From [facility]. Parents are . Highest Grade Completed: Some College Employment Status: Student ([employer] senior) Marital Status: Single Number Of Children: n/a Beliefs That Will Affect Care: Mormon and Cultural Current Legal Problems: No Hx Legal Problems: No Hx Traumatic Life Events: Yes Patient History Medical History Borderline personality disorder Generalized anxiety disorder Suicidal ideation Surgical History No pertinent past surgical history Social History Smoking Status: Current some day smoker Preferred Language: [place] Citizen Communication Ability: Effective Coordinator Of Placement Required: No Beliefs That Will Affect Care: Mormon Mormon Beliefs: Pt does not feel she will need any accomodations for temple at this time. and Cultural Feels Safe at Home: Yes Assistive Devices: Contacts Review of Systems Review of Systems: All systems reviewed & are unremarkable except as noted in HPI & below (migraine) Physical Exam Psychiatric: Orientation: alert and oriented x 3 Apperance: appropriately dressed and appropriately groomed Eye Contact: good eye contact Motor Behavior: no abnormal motor movements Speech: normal rate/rhythm/volume of speech Affect: + anxious affect and + constricted affect Mood: + depressed mood and + anxious mood Thought Process: goal directed thought process Thought Content: reality based without delusions Suicidal Thoughts: denies suicidal plan and denies suicidal intent; + reports suicidal thoughts (intermittent passive thoughts ) Homicidal Thoughts: denies homicidal thoughts Hallucinations: no auditory hallucinations and no visual hallucinations Cognition: recent memory grossly intact, remote memory grossly intact, attention grossly intact and language grossly intact Estimated Intelligence: consistent with education level Insight: + limited insight Judgement: + limited judgement Vital Signs (Past 24 Hours): Last Vital Signs Temp 36.6 C 05/10/22 06:41 Pulse 71 05/10/22 06:42 Resp 16 05/10/22 06:41 BP 110/69 05/10/22 06:42 Pulse Ox 100 05/09/22 19:07 O2 Del Method 05/09/22 19:07 Exam Statement: A physical exam was performed in the ED by Dr. Lazar for the purposes of medical clearance. I accept that physical as correct and adequate for the purposes of the inpatient physical exam. Results & Data ([facility]) Laboratory Results Laboratory Results - last 24 hr 05/09/22 05/09/22 05/09/22 15:04 15:04 15:04 WBC 7.74 RBC 4.06 Hgb 12.6 Hct 37.5 MCV 92.4 MCH 31.0 MCHC 33.6 RDW Std Deviation 41.6 RDW Coeff of Rosalina 12.3 Plt Count 333 MPV 8.8 L Immature Gran % (Auto) 0.1 Neut % (Auto) 67.5 Lymph % (Auto) 22.7 Harnett % (Auto) 4.9 Eos % (Auto) 4.0 Baso % (Auto) 0.8 Neut # (Auto) 5.22 Lymph # (Auto) 1.76 Harnett # (Auto) 0.38 Eos # (Auto) 0.31 Baso # (Auto) 0.06 Immature Gran # (Auto) 0.01 Sodium 137 Potassium 3.5 Chloride 107 Carbon Dioxide 24 Anion Gap 6 BUN 8 Creatinine 0.61 Est Cr Clr Drug Dosing 130.4 Est GFR ( Amer) > 150.0 Est GFR (Non-Af Amer) 129.6 BUN/Creatinine Ratio 13.1 Glucose 80 Calcium 8.9 Total Bilirubin 0.4 AST 20 ALT 12 Alkaline Phosphatase 37 Total Protein 7.7 Albumin 4.3 Globulin 3.4 Albumin/Globulin Ratio 1.3 TSH 0.736 Urine Color Urine Appearance Urine pH Ur Specific Atwood Urine Protein Urine Glucose (UA) Urine Ketones Urine Blood Urine Nitrite Urine Bilirubin Urine Urobilinogen Ur Leukocyte Esterase Salicylates Urine Opiates Screen Ur Methadone, Qual Acetaminophen Urine Barbiturates Ur Phencyclidine (PCP) U Amphetamin/Meth Scrn MDMA (Ecstasy) Screen U Benzodiazepines Scrn Ur Cocaine Metabolite U Marijuana (THC) Screen Ethyl Alcohol mg/dL SARS-CoV-2, RNA, NAAT 05/09/22 05/09/22 05/09/22 15:04 15:04 15:04 WBC RBC Hgb Hct MCV MCH MCHC RDW Std Deviation RDW Coeff of Rosalina Plt Count MPV Immature Gran % (Auto) Neut % (Auto) Lymph % (Auto) Harnett % (Auto) Eos % (Auto) Baso % (Auto) Neut # (Auto) Lymph # (Auto) Harnett # (Auto) Eos # (Auto) Baso # (Auto) Immature Gran # (Auto) Sodium Potassium Chloride Carbon Dioxide Anion Gap BUN Creatinine Est Cr Clr Drug Dosing Est GFR ( Amer) Est GFR (Non-Af Amer) BUN/Creatinine Ratio Glucose Calcium Total Bilirubin AST ALT Alkaline Phosphatase Total Protein Albumin Globulin Albumin/Globulin Ratio TSH Urine Color Urine Appearance Urine pH Ur Specific Atwood Urine Protein Urine Glucose (UA) Urine Ketones Urine Blood Urine Nitrite Urine Bilirubin Urine Urobilinogen Ur Leukocyte Esterase Salicylates < 3.0 L Urine Opiates Screen Ur Methadone, Qual Acetaminophen < 3 L Urine Barbiturates Ur Phencyclidine (PCP) U Amphetamin/Meth Scrn MDMA (Ecstasy) Screen U Benzodiazepines Scrn Ur Cocaine Metabolite U Marijuana (THC) Screen Ethyl Alcohol mg/dL < 10.0 SARS-CoV-2, RNA, NAAT NEGATIVE 05/09/22 05/09/22 15:04 15:04 WBC RBC Hgb Hct MCV MCH MCHC RDW Std Deviation RDW Coeff of Rosalina Plt Count MPV Immature Gran % (Auto) Neut % (Auto) Lymph % (Auto) Harnett % (Auto) Eos % (Auto) Baso % (Auto) Neut # (Auto) Lymph # (Auto) Harnett # (Auto) Eos # (Auto) Baso # (Auto) Immature Gran # (Auto) Sodium Potassium Chloride Carbon Dioxide Anion Gap BUN Creatinine Est Cr Clr Drug Dosing Est GFR ( Amer) Est GFR (Non-Af Amer) BUN/Creatinine Ratio Glucose Calcium Total Bilirubin AST ALT Alkaline Phosphatase Total Protein Albumin Globulin Albumin/Globulin Ratio TSH Urine Color Yellow Urine Appearance Clear Urine pH 7.0 Ur Specific Atwood 1.007 Urine Protein Negative Urine Glucose (UA) Negative Urine Ketones Negative Urine Blood Negative Urine Nitrite Negative Urine Bilirubin Negative Urine Urobilinogen Negative Ur Leukocyte Esterase Negative Salicylates Urine Opiates Screen Neg Ur Methadone, Qual Neg Acetaminophen Urine Barbiturates Neg Ur Phencyclidine (PCP) Neg U Amphetamin/Meth Scrn Neg MDMA (Ecstasy) Screen Neg U Benzodiazepines Scrn Neg Ur Cocaine Metabolite Neg U Marijuana (THC) Screen Neg Ethyl Alcohol mg/dL SARS-CoV-2, RNA, NAAT Current Inpatient Medications Current Inpatient Medications: Current Inpatient Medications Acetaminophen (Acetaminophen 325 Mg Tab) 650 mg PO Q4H PRN PRN Reason: Headache or Minor Fever Stop: 06/08/22 17:41 Al Hydrox/Mg Hydrox/Simethicone (Aluminum/Magnesium Susp 30 Ml Udc) 30 ml PO Q4H PRN PRN Reason: GI Upset Stop: 06/08/22 17:41 Bismuth Subsalicylate (Bismuth Subsalicylate Liqd 236 Ml) 15 ml PO PRN PRN PRN Reason: Loose Stool Stop: 06/08/22 17:41 Hydroxyzine HCl (Hydroxyzine Hcl 25 Mg Tab) 50 mg PO HSZ PRN PRN Reason: Insomnia Stop: 06/08/22 17:41 Hydroxyzine HCl (Hydroxyzine Hcl 25 Mg Tab) 25 mg PO Q4H PRN PRN Reason: Anxiety Stop: 06/08/22 17:41 Magnesium Hydroxide (Magnesium Hydroxide Susp 30 Ml Udc) 30 ml PO DAILY PRN PRN Reason: Constipation Stop: 06/08/22 17:41 Sodium Chloride (Sodium Chloride 0.65% Na Soln 45 Ml ([place])) 1 - 2 sprays NA PRN PRN PRN Reason: Nasal Dryness/Congestion Stop: 06/08/22 17:41
[2022-05-10] MEDS: SERTRALINE HCL 50 MG TABLET PO SCH (11:31)
[2022-05-11] MEDS: SERTRALINE HCL 50 MG TABLET PO SCH (08:44)
--- NOTE | 2022-05-11 17:15 | Psychiatric Progress Note ---
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 Diagnostically consistent with borderline personality disorder and some worsening derealization from trauma. Her acute risk seems slightly elevated beyond her chronically high baseline risk so will focus on modifiable risk factors with goal of brief hospitalization as prolonged inpatient treatment is likely to reinforce maladaptive coping skills and lead to worsening of acute and chronic risk, can lead to worsening of the patient's prognosis especially as she identifies some reduction in her suicidality in recent months as no longer having active SI with plan nor intent but rather what she identifies as passive intermittent SI. 05/11/22: Mood remains stable with feelings of chronic numbness but with bright affect, engaged in groups and denies any active SI nor any plans nor intent. Motivated to engage in outpatient therapy to address borderline personality disorder symptoms including numbness/emptiness and to continue to work on ways to cope with trauma symptoms of derealization. Likes the sertraline and tolerating this well without any side effects. Feels hopeful about potential mood benefits from sertraline. Acute risk of self-harm continues to diminish given hopefulness, future- oriented, denies any active SI, no acts of self-harm since admission, motivated to continue with school, feels supported by friends and family, loves her dog and has outpatient care in place for therapy and to begin some CBT and possibly DBT work and is low compared to her chronically elevated baseline risk. She does not yet have any providers for her newly started psychiatric medication which remains important to have established before she leaves the hospital. Chronic risk is high given multiple non-modifiable risk factors including BPD, having a suicide kit that she is not willing to get rid of (though does not have any medications or other lethal means in this kit rather views as a source of maladaptive coping/comfort object), chronic SI, trauma, strained relationship with her mother but encouragingly has never had a prior attempt, is socially connected to peers and is engaging academically and now with therapy. While she may always be at a senior care risk for harm to self, once outpatient medication management is established there will be no further clear modifiable factors for inpatient treatment to modify, she desires discharge once outpatient medication management is established, extended inpatient treatment can reinforce maladaptive coping skills and lead to worsening of acute and chronic risk and prolonged admissions are often contraindicated due to the worsening of the patient's prognosis when there is no longer an acute risk to modify. Reviewed with her that in the future if SI intensifies to point of thinking of plans or intent or upon any emergence of new stressors, the chronic risk may then transform into a period of acuity. Provided education and recommendations of treatment options and behavioral strategies including DBT which can help to reduce their acute and chronic risk which she is receptive to trying as an outpatient with her current therapist. Also discussed resources and ways to add additional protective factors and positive supports to their life to reduce elements of chronic risk including ongoing engagement with peers, family and therapy. (1) Borderline personality disorder: (2) Post traumatic stress disorder (PTSD): (3) Generalized anxiety disorder: (4) Suicidal ideations: Plan 05/11/22: Continue current medication and tx plan. Needs an outpt primary care provider for medication management. 05/10/22: The patient was admitted to the [facility] ([facility] mental health unit) on q15 min checks (behavioral with suicide precautions) for safety. The patient will participate in group, recreational, and milieu therapies and will be offered additional individual and family sessions as clinically appropriate. -Start sertraline 25mg qd -Radha BPD questionnaire Inventory Assets Strengths: supportive relationships, starting outpatient therapy, willing to consider DBT, resilient Needs: safety and stabilization, medication adjustment, additional coping skills, increased outpatient services Suicide Risk Level Suicide Risk Level: Moderate (q15 min suicide checks) (due to BPD with chronic intermittent SI prior to admission but denies any active SI, mood is improving and feels safe in the hospital, able to safety contract and agrees to let nursing/staff know should they develop plan, intent or feel unable to remain safe.) Suicide Risk Level Comments: Risk Factors Assessment Male: No : No Do You Have Access To A Gun?: No Health Problems: No Mental Health Diagnoses: Yes Substance Use Disorders: No Previous Attempt: No Family History of Suicide: No Previous Psychiatric Hospitalization: Yes Protective Factors Assessment Employed: No Stable Relationships: Yes Supportive Family: Yes Interval History Identifying Information HEIDI MCGRAW is a 21-year-old woman and 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 Chief Complaint "I'm pretty good". Review of Systems Sleep Information Total Hours of Sleep: 7 Meal Information Percent Meal Consumed - Breakfast: 50 Percent Meal Consumed - Lunch: 90 Percent Meal Consumed - Dinner: 30 Subjective Subjective Patient was seen & assessed and interval progress reviewed with treatment team nursing and social work. Attending groups. Bright affect. Continues to feel numb but denies any active SI. Likes that she is now on sertraline as she's hopeful this will help her "get the most out of therapy". Discussed BPD and ways to reduce chronic risk of self-harm especially through DBT and optional workbooks she could order in addition to outpatient therapy. She is future-oriented about eventually returning to outpatient therapy in [facility] after she graduates in October as she found this very helpful. Has angry toward her mother but was glad she participated in the family meeting via zoom. Feels well supported by her dad. Denies any medication side effects. Hopeful that over time she'll be able to feel more emotions with addition of sertraline. Physical Exam Psychiatric Orientation: alert and oriented x 3 Apperance: appropriately dressed and appropriately groomed Eye Contact: good eye contact Motor Behavior: no abnormal motor movements Speech: normal rate/rhythm/volume of speech Affect: euthymic affect Mood: no depressed mood ("numb" ) and no anxious mood Thought Process: goal directed thought process Thought Content: reality based without delusions Suicidal Thoughts: denies suicidal plan and denies suicidal intent; + reports suicidal thoughts (intermittent passive thoughts ) Homicidal Thoughts: denies homicidal thoughts Hallucinations: no auditory hallucinations and no visual hallucinations Cognition: recent memory grossly intact, remote memory grossly intact, attention grossly intact and language grossly intact Estimated Intelligence: consistent with education level Insight: + fair insight Judgement: + limited judgement Vital Signs (Past 24 Hours) Last Vital Signs Temp 36.8 C 05/11/22 06:34 Pulse 73 05/11/22 06:35 Resp 16 05/11/22 06:34 BP 115/74 05/11/22 06:35 Pulse Ox 100 05/09/22 19:07 O2 Del Method 05/09/22 19:07 Results & Data ([facility]) Current Inpatient Medications Current Inpatient Medications: Current Inpatient Medications Acetaminophen (Acetaminophen 325 Mg Tab) 650 mg PO Q4H PRN PRN Reason: Headache or Minor Fever Stop: 06/08/22 17:41 Al Hydrox/Mg Hydrox/Simethicone (Aluminum/Magnesium Susp 30 Ml Udc) 30 ml PO Q4H PRN PRN Reason: GI Upset Stop: 06/08/22 17:41 Bismuth Subsalicylate (Bismuth Subsalicylate Liqd 236 Ml) 15 ml PO PRN PRN PRN Reason: Loose Stool Stop: 06/08/22 17:41 Hydroxyzine HCl (Hydroxyzine Hcl 25 Mg Tab) 50 mg PO HSZ PRN PRN Reason: Insomnia Stop: 06/08/22 17:41 Hydroxyzine HCl (Hydroxyzine Hcl 25 Mg Tab) 25 mg PO Q4H PRN PRN Reason: Anxiety Stop: 06/08/22 17:41 Magnesium Hydroxide (Magnesium Hydroxide Susp 30 Ml Udc) 30 ml PO DAILY PRN PRN Reason: Constipation Stop: 06/08/22 17:41 Sertraline HCl (Sertraline Hcl 50 Mg Tablet) 25 mg PO QAM ARSALAN Stop: 06/09/22 11:14 Last Admin: 05/11/22 08:44 Dose: 25 mg Sodium Chloride (Sodium Chloride 0.65% Na Soln 45 Ml (Hardy)) 1 - 2 sprays NA PRN PRN PRN Reason: Nasal Dryness/Congestion Stop: 06/08/22 17:41 Mental Health & Subst Abuse Tx Therapist Name of Therapist: [facility] Therapist's Therapy Appointment Comment: [address], [address], [place] [address] Superintendent Sales Name of Superintendent Sales: None Post Discharge Appointments Primary Care Physician Name Of Family Doctor: [facility] Primary Care Provider Appointment Comment: Follow up as needed Contact Information Discharge Discharge Address: [address] [place] [address]. [place] [id number]
[2022-05-12] MEDS: SERTRALINE HCL 50 MG TABLET PO SCH (08:31)
--- NOTE | 2022-05-12 11:21 | Discharge Summary ---
Date of Service May 12, 2022 History of Present Illness As per Dr. Almaraz on admission: Doreen presents for psychiatric admission for chronic SI and unable to safety plan in outpatient setting due to keeping a "suicide kit" to use if needed. 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 [facility] is working to request accommodations for a reduced academic schedule but if this is not successful she'll transition to a visitors Visa and could stay here but then couldn't do her classes and would need to restart next semester. While speaking to [facility] she discussed her chronic SI and having access to a suicide kit which lead them to refer her to the hospital. She describes reading about recent "case studies" of people having suicide kits with meat tenderizer substances that could be mixed with water and drink to . She explains she had been looking into this but would not want to use it as it causes hemorrhaging and bruising and would be scary. She has a rope but states "in theory it would work" but that in her house "the measurements wouldn't work because I would find something to latch on to to save myself" and that "our bodies flight or fight is amazing". Speaks to the confusion of both wanting to but also planning ahead to graduate school and necessary steps for acquiring a new Visa. She notes "now that I'm not actively suicidal I'm just floating and if I can't kill myself what do I do with my life?". She identifies some worsening of anxiety due to increased difficulty with her classes and needing to drop classes. She endorses chronic passive SI but states "I no longer have that feeling of actively planning new plans". She notes she has a suicide kit but it doesn't have pills in it currently. She describes "I'm dysfunctional and numb if it wasn't for my dog I wouldn't be able to get up in the morning". 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 Describes "I feel comfortable being depressed, it's the feeling I'm most comfortable and familiar with". She feels the past few months her SI has decreased in that she is no longer having active SI and has moved to passive SI but she feels this is bothering her because "it's not there and that's what I'm used to". Identifies reasons for living as her dog. Endorses some feelings of dissociation (though states this has decreased a lot in recent years), still feels some derealization. Further recent history reviewed and confirmed as documented by ED psych CM note from 05/09/22: "Sigifredo Watts) was sent to ED by [facility] for evaluation. Doreen was seen by [facility] and reported ongoing "constant' thoughts of suicide for the past eight years. She stated she has a "suicide kit" that she keeps with rope and "chemicals" to OD on. She reported depressed mood, low motivation, irritability and family stressors. She stated she has racing thoughts, feelings of worthlessness, and trouble concentrating. She reported stressors as academic and having to drop two classes already this semester. 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 She stated she feels "numb." Doreen was hospitalized for inpatient mental health treatment at [facility] from 10/15/2020 to 10/24/2020. She had a recent intake at [facility] and is on their waiting list. She is not prescribed any medications. She denies substance use. She reports occasional alcohol use, socially approx 2 days a week. She denies any legal issues. Doreen is agreeable with recommendation made by [facility] for inpatient mental health treatment." She is not currently prescribed any psychiatric medications. Psychiatric ROS notable for history of self-harm via cutting, hx of eating disorder. No current nor history of symptoms of ana nor psychosis. Physical Exam Psychiatric See admission H&P and DOD assessment. Vital Signs (Past 24 Hours) Last Vital Signs Temp 36.9 C 05/12/22 09:47 Pulse 72 05/12/22 09:47 Resp 16 05/12/22 09:47 BP 113/78 05/12/22 09:47 Pulse Ox 100 05/12/22 09:47 O2 Del Method 05/12/22 06:00 Principal Diagnosis borderline personality disorder Psychiatric Data See daily stay summary. In short, safety was maintained and the patient was cooperative with care. Medication changes included a trial of Zoloft and they tolerated this well though did report some reflux symptoms on day of discharge. She was encouraged to take with food and monitor as common in first 2 weeks of treatment and can hold medication if needed and notify provider. A family session was held with her parents in [facility] and safety plan was completed prior to discharge. Psych clinic is not currently accepting referrals for medication management so she is being [facility]. Day of Discharge Assessment Today the patient voices readiness for discharge. They note improvement in mood and deny any active intent to harm self or others. She continue to report feeling numb but recognizes as chronic and part of her personality disorder p athology. She asked appropriate questions about why she developed this condition and sister did not. Thoughts remain organized and they are improved from admission. There is no evidence of psychosis or ana/impulse control issue. They agree to take mediations as prescribed and keep follow-up appointments. They are stable for discharge to outpatient level of care. Transition of Care Transition Of Care Record: was reviewed with the patient Advance Directives Advance Directives Information Provided: Yes Advance Directives: No Mental Health Advance Directive: No Advance Directives on File: No Living Will: No Power of Tibco Developer: No Advance Directives Reason:: Declines as Mental Health Visit. Suicide Risk Level Suicide Risk Level Comments: chronic risk as part of her personality disorder, no active intent and any factors that can be mitigated by inpatient care have been addressed. Ongoing outpatient therapy with a DBT component is the treatment of choice for her condition. Risk Factors Assessment Male: No : No Do You Have Access To A Gun?: No Health Problems: No Mental Health Diagnoses: Yes Substance Use Disorders: No Previous Attempt: No Family History of Suicide: No Previous Psychiatric Hospitalization: Yes Protective Factors Assessment Employed: No Stable Relationships: Yes Supportive Family: Yes Tobacco Cessation at Discharge Tobacco Cessation Medication Prescribed at Discharge: Not Applicable/Non-Smoker Total Time Total Time Spent: Greater Than 30 Minutes Total Time Includes: Examination of the patient, Discharge Planning and Medication Reconciliation Discharge Data Lab Results 05/09/22 05/09/22 05/09/22 15:04 15:04 15:04 WBC 7.74 RBC 4.06 Hgb 12.6 Hct 37.5 MCV 92.4 MCH 31.0 MCHC 33.6 RDW Std Deviation 41.6 RDW Coeff of Rosalina 12.3 Plt Count 333 MPV 8.8 L Immature Gran % (Auto) 0.1 Neut % (Auto) 67.5 Lymph % (Auto) 22.7 Traill % (Auto) 4.9 Eos % (Auto) 4.0 Baso % (Auto) 0.8 Neut # (Auto) 5.22 Lymph # (Auto) 1.76 Traill # (Auto) 0.38 Eos # (Auto) 0.31 Baso # (Auto) 0.06 Immature Gran # (Auto) 0.01 Sodium 137 Potassium 3.5 Chloride 107 Carbon Dioxide 24 Anion Gap 6 BUN 8 Creatinine 0.61 Est Cr Clr Drug Dosing 130.4 Est GFR ( Amer) > 150.0 Est GFR (Non-Af Amer) 129.6 BUN/Creatinine Ratio 13.1 Glucose 80 Calcium 8.9 Total Bilirubin 0.4 AST 20 ALT 12 Alkaline Phosphatase 37 Total Protein 7.7 Albumin 4.3 Globulin 3.4 Albumin/Globulin Ratio 1.3 TSH 0.736 Urine Color Urine Appearance Urine pH Ur Specific Montrose Urine Protein Urine Glucose (UA) Urine Ketones Urine Blood Urine Nitrite Urine Bilirubin Urine Urobilinogen Ur Leukocyte Esterase Salicylates Urine Opiates Screen Ur Methadone, Qual Acetaminophen Urine Barbiturates Ur Phencyclidine (PCP) U Amphetamin/Meth Scrn MDMA (Ecstasy) Screen U Benzodiazepines Scrn Ur Cocaine Metabolite U Marijuana (THC) Screen Ethyl Alcohol mg/dL SARS-CoV-2, RNA, NAAT 05/09/22 05/09/22 05/09/22 15:04 15:04 15:04 WBC RBC Hgb Hct MCV MCH MCHC RDW Std Deviation RDW Coeff of Rosalina Plt Count MPV Immature Gran % (Auto) Neut % (Auto) Lymph % (Auto) Traill % (Auto) Eos % (Auto) Baso % (Auto) Neut # (Auto) Lymph # (Auto) Traill # (Auto) Eos # (Auto) Baso # (Auto) Immature Gran # (Auto) Sodium Potassium Chloride Carbon Dioxide Anion Gap BUN Creatinine Est Cr Clr Drug Dosing Est GFR ( Amer) Est GFR (Non-Af Amer) BUN/Creatinine Ratio Glucose Calcium Total Bilirubin AST ALT Alkaline Phosphatase Total Protein Albumin Globulin Albumin/Globulin Ratio TSH Urine Color Urine Appearance Urine pH Ur Specific Montrose Urine Protein Urine Glucose (UA) Urine Ketones Urine Blood Urine Nitrite Urine Bilirubin Urine Urobilinogen Ur Leukocyte Esterase Salicylates < 3.0 L Urine Opiates Screen Ur Methadone, Qual Acetaminophen < 3 L Urine Barbiturates Ur Phencyclidine (PCP) U Amphetamin/Meth Scrn MDMA (Ecstasy) Screen U Benzodiazepines Scrn Ur Cocaine Metabolite U Marijuana (THC) Screen Ethyl Alcohol mg/dL < 10.0 SARS-CoV-2, RNA, NAAT NEGATIVE 05/09/22 05/09/22 15:04 15:04 WBC RBC Hgb Hct MCV MCH MCHC RDW Std Deviation RDW Coeff of Rosalina Plt Count MPV Immature Gran % (Auto) Neut % (Auto) Lymph % (Auto) Traill % (Auto) Eos % (Auto) Baso % (Auto) Neut # (Auto) Lymph # (Auto) Traill # (Auto) Eos # (Auto) Baso # (Auto) Immature Gran # (Auto) Sodium Potassium Chloride Carbon Dioxide Anion Gap BUN Creatinine Est Cr Clr Drug Dosing Est GFR ( Amer) Est GFR (Non-Af Amer) BUN/Creatinine Ratio Glucose Calcium Total Bilirubin AST ALT Alkaline Phosphatase Total Protein Albumin Globulin Albumin/Globulin Ratio TSH Urine Color Yellow Urine Appearance Clear Urine pH 7.0 Ur Specific Montrose 1.007 Urine Protein Negative Urine Glucose (UA) Negative Urine Ketones Negative Urine Blood Negative Urine Nitrite Negative Urine Bilirubin Negative Urine Urobilinogen Negative Ur Leukocyte Esterase Negative Salicylates Urine Opiates Screen Neg Ur Methadone, Qual Neg Acetaminophen Urine Barbiturates Neg Ur Phencyclidine (PCP) Neg U Amphetamin/Meth Scrn Neg MDMA (Ecstasy) Screen Neg U Benzodiazepines Scrn Neg Ur Cocaine Metabolite Neg U Marijuana (THC) Screen Neg Ethyl Alcohol mg/dL SARS-CoV-2, RNA, NAAT Hospital Course (1) Borderline personality disorder: (2) Post traumatic stress disorder (PTSD): (3) Generalized anxiety disorder: (4) Suicidal ideations: Plan 05/11/22: Continue current medication and tx plan. Needs an outpt primary care provider for medication management. 05/10/22: [facility] on q15 min checks (behavioral with suicide precautions) for safety. The patient will participate in group, recreational, and milieu therapies and will be offered additional individual and family sessions as clinically appropriate. -Start sertraline 25mg qd -Radha BPD questionnaire Mental Health & Subst Abuse Tx Psychiatrist Name of Psychiatrist: [facility] Psychiatrist's Psychiatric Appointment Comment: [address], [place] [address] Psychiatrist Release of Information: Obtained, Reviewed and Signed Therapist Name of Therapist: [facility] Therapist's Date of Therapist Appointment: 05/13/22 Time of Therapist Appointment: 11 AM Therapy Appointment Comment: [address] [place] [address] Therapist Release of Information: Obtained, Reviewed and Signed Button Cutter Name of Button Cutter: None Post Discharge Appointments Primary Care Physician Name Of Family Doctor: [facility] Primary Care Provider Appointment Comment: Follow up as needed. Smoking Cessation Counseling Tobacco Cessation Medication Prescribed at Discharge: Not Applicable/Non-Smoker Other #1: Name of Aftercare Appointment: [facility] Phone Number of Aftercare Appointment: [phone] Aftercare Appointment Comment: Zoom link will be sent to [facility] email Contact Information Discharge Discharge Address: [address] [place] [id number] Discharge Plan Discharge Items Patient Disposition: Home - Self-Care Reason For Visit: SI WITH PLAN Discharge Diagnosis: borderline personality disorder Activity: Resume your previous activity Non-emergency contact: Primary Care Provider, Psychiatrist and Therapist Call non-emergency contact if: you have any medication questions and your symptoms worsen Follow-up/Referrals: [facility] [Primary Care Provider] - Diet: Regular Addtl Attending Provider Instructions: SPECIAL CARE INSTRUCTIONS: 1. Follow through with your scheduled aftercare appointments. If unable to keep an appointment, please call to reschedule. 2. Take your medication only as prescribed. Medication should not be changed or stopped without the approval of your doctor. In the event of worsening symptoms or concerns about side effects, contact your doctor immediately. 3. Utilize new healthy coping skills, anger management skills, and stress management skills learned during your hospitalization. Journal feelings and process them with a support person. Identify stressors or situations that may result in relapse, deterioration or inappropriate behaviors and develop a plan to deal with those issues. 4. If your coping skills are ineffective and you are in crisis, contact your outpatient providers for direction. If unable to reach your providers, please call the [facility] CRISIS LINE AT , go to the [facility] walk-in center at [address], [address], [place], or go to the closest Emergency Room. 5. Avoid alcohol and un-prescribed drugs. 6. You have been provided with the Mental Health Advance Directives Pamphlet for your review. 7. Your condition is stable for discharge to outpatient level of care, but recovery is an ongoing process. Ifthoughts to harm yourself or others return, follow the safety plan developed during your stay. Planning for a safe return home includes securing weapons. Our treatment team recommends weaponsbe removed from the home until your outpatient provider reassesses your progress. In rare cases where the items themselvescannot be removed, guns and ammunitionshould be secured separatelyand keys stored by a reliable personoutside of the home. If you were admitted on an involuntary commitment, the police or other legal authorities may be involved in this process. AFTERCARE APPOINTMENTS: * Please call your insurance company prior to your scheduled appointment to confirm your aftercare providers are covered. Take your insurance information to your appointments. WHO TO CALL AND WHEN: Medical Emergencies: For questions or emergencies related to your hospital stay, please contact the Inpatient Behavioral Health Unit at [phone]. A audit machine operator is on-call 12/01 for the Behavioral Health Unit for emergencies At any time you feel your situation is an emergency, you may also call 911 immediately. Pending Studies at Discharge: No Stand-Alone Forms: My [facility], Smoking Cessation Medications and DC Order Prescriptions: New sertraline [Zoloft] 25 mg tablet 25 mg PO DAILY Qty: 10 2RF Rx Instructions: replaces rx for 50 mg tabs sent in error No Action No Known Home Medications Discharge Orders: Discharge Order (Routine); Ordered 05/12/22 Ordered By: Nani Srinivasan Admission Data Admit Date/Time: 05/09/22 17:42 Attending Provider: Nani Srinivasan Admit Provider: Aiyana Almaraz Primary Care Provider: [place] Other Interventions: Discharge Summary Assessment (RN) Last Done: 05/12/22 09:47 PSY Interdisciplinary Discharge Planning Last Done: 05/12/22 10:01 Coding Level of Care Code 54318 D/C day mgmt > 30 min Diagnoses Borderline personality disorder F60.3 Post traumatic stress disorder (PTSD) F43.10 Generalized anxiety disorder F41.1 Suicidal ideations R45.837
== END 2022-05-12 14:02 | disposition home or self-care (01) | DRG 883 ==
LOC: ED 14:40 → 3S 17:42 → SUATTDRO 17:42 → 3S 18:40